=== PATIENT | female | born 1945 | race Caucasian/White ===

== ENCOUNTER 2017-09-20 13:01 | Inpatient (IN) | payer MEDICARE ==
[~2017-09-20] VITALS: Ht 167.6 cm; Wt 75.3 kg
[2017-09-20] MEDS ORDERED: ASPIRIN 81 MG CHEW TAB PO ONE ×2 (13:15→19:00)
--- NOTE | 2017-09-20 14:08 | Diagnostic Imaging Report ---
PROCEDURE:X-RAY CHEST, ONE VIEW COMPARISON:09/02/2010. INDICATIONS:CHEST PAIN FINDINGS: The lungs remain well-inflated. No focal consolidation, pleural effusion, or pneumothorax. Stable calcified granuloma in the right midlung. The mediastinal contour and pulmonary vasculature are within normal limits. No acute osseous abnormality. CONCLUSION: No acute cardiopulmonary abnormality. Dictated by: Kelvin Hines M.D. on 09/20/2017 at 14:16 Electronically approved by: Kelvin Hines M.D. on 09/20/2017 at 14:16
[2017-09-20] MEDS ORDERED: NITROGLYCERIN 2% OINT 1 GM PKT TOP ONE (15:00)
[2017-09-20] MEDS ORDERED: NIFEDIPINE 10 MG CAP PO ONE (15:00)
[2017-09-20 15:01] LABS: BASOPHILS # (AUTO) 0.1 (0.0-0.1); BASOPHILS % 0.5 % (0.0-1.0); EOSINOPHILS # (AUTO) 0.1 (0.0-0.4); EOSINOPHILS % 0.5 % (0.0-6.0); HEMOGLOBIN 12.9 g/dL (12.0-16.0); LYMPHOCYTES # (AUTO) 4.6 (1.0-3.2); LYMPHOCYTES % 30.1 % (18.0-39.1); MEAN CORPUSCULAR HEMOGLOBIN 29.2 pg (28-32); MEAN CORPUSCULAR HGB CONC 33.9 g/dL (31-35); MONOCYTES # (AUTO) 1.4 (0.2-0.8); MONOCYTES % 9.1 % (4.4-11.3); NEUTROPHILS # (AUTO) 8.9 (2.1-6.9); NEUTROPHILS % 58.7 % (38.7-80.0); PLATELET COUNT 320 x10e3/uL (140-360); RED BLOOD COUNT 4.42 x10e6/uL (3.6-5.1); RED CELL DISTRIBUTION WIDTH 13.3 % (11.7-14.4)
[2017-09-20 15:05] LABS: INR 0.86; PROTHROMBIN TIME 12.2 seconds (11.9-14.5)
[2017-09-20 15:06] LABS: PARTIAL THROMBOPLASTIN TIME 24.3 seconds (23.8-35.5)
[2017-09-20 15:14] LABS: ALANINE AMINOTRANSFERASE 18 IU/L (0-55); ALBUMIN 3.4 g/dL (3.5-5.0); ALBUMIN/GLOBULIN RATIO 0.9 (0.8-2.0); ALKALINE PHOSPHATASE 66 IU/L (40-150); BLOOD UREA NITROGEN 11 mg/dL (7-26); BUN/CREATININE RATIO 14 (6-25); CARBON DIOXIDE 25 mmol/L (22-29); CHLORIDE 105 mmol/L (98-107); CREATINE KINASE 75 IU/L (29-168); CREATININE, SERUM 0.77 mg/dL (0.57-1.11); EST GLOMERULAR FILTRATION RATE > 60 ML/MIN (60-); GLUCOSE 104 mg/dL (74-118); LIPASE 25 U/L (8-78); SODIUM 142 mmol/L (136-145)
[2017-09-20 15:33] LABS: THYROID STIMULATING HORMONE 1.703 uIU/mL (0.350-4.940); TROPONIN I 0.012 ng/mL (0-0.300)
[2017-09-20] MEDS ORDERED: NITROGLYCERIN 0.4 MG SUBL SL PRN (19:00)
[2017-09-20] MEDS ORDERED: MORPHINE SULFATE 2 MG/ML SYR IV PRN (19:00)
[2017-09-20] MEDS ORDERED: ENOXAPARIN SODIUM INJ 100 MG/ML SYR SC SCH (19:00)
[2017-09-20] MEDS ORDERED: METOPROLOL TARTRATE 25 MG TAB PO SCH (19:30)
[2017-09-20] MEDS ORDERED: FAMOTIDINE 20 MG TAB PO SCH (19:45)
[2017-09-20] MEDS ORDERED: ENOXAPARIN SOD INJ 60 MG/0.6 ML SYR SC SCH (20:00)
[2017-09-20 20:52] LABS: BILIRUBIN,URINE NEGATIVE (NEGATIVE); CLARITY,URINE SL CLOUDY (CLEAR); COLOR,URINE YELLOW (YELLOW); KETONES,URINE NEGATIVE (NEGATIVE); LEUKOCYTE ESTERASE ,URINE 2+ (NEGATIVE); NITRITE,URINE NEGATIVE (NEGATIVE); PROTEIN,URINE DIPSTICK NEGATIVE (NEGATIVE); URINE UROBILINOGEN 0.2 mg/dL (0.2 - 1)
[2017-09-20 20:54] LABS: BACTERIA,URINE RARE /HPF; EPITHELIAL CELLS,URINE MODERATE /LPF
[2017-09-20 21:32] VITALS: BP 200/93
[2017-09-20] MEDS ORDERED: HYDRALAZINE HCL 20 MG/ML VIAL IV PRN (23:15)
[2017-09-21] VITALS (7 sets, daily range): BP systolic 121–190; BP diastolic 57–86
[2017-09-21] MEDS ORDERED: DIPHENHYDRAMINE HCL INJ 50 MG/ML VIAL IV PRN
[2017-09-21] MEDS ORDERED: NITROGLYCERIN 2% OINT 1 GM PKT TOP SCH
[2017-09-21] MEDS: NITROGLYCERIN 2% OINT 1 GM PKT TOP SCH ×2 (00:19→06:00)
[2017-09-21] MEDS ORDERED: ASPIRIN 325 MG TAB PO PRN (04:45)
[2017-09-21] MEDS ORDERED: PROMETHAZINE HCL 25 MG TAB PO PRN (06:30)
[2017-09-21] MEDS ORDERED: SODIUM CHLORIDE 0.9% 1000ML 500 ML IV ONE (07:45)
[2017-09-21] MEDS ORDERED: ONDANSETRON HCL INJ 2 MG/ML VIAL IV PRN (07:45)
[2017-09-21] MEDS ORDERED: KETOROLAC TROMETHAMINE 30 MG/ML VIAL IV PRN (07:45)
--- NOTE | 2017-09-21 08:57 | History and Physical ---
Patient admitted for chest pain and hypertensive crisis. HISTORY OF PRESENTING ILLNESS: Ms. Shabnam Keene is a 72-year-old female with history of hypertension, was in usual state of health until yesterday the patient went to her pediatric nurse practitioner, was found to have blood pressure of 170/90. She went home and she started eating something and at that time she started to have some external chest pain. She went back to taking Tums and Rolaids and patient felt better, but her blood pressure got a little bit more. She went to urgent care clinic and was sent to the emergency room where her blood pressure was found to be very, very high at 200/100s. The patient was admitted for chest pain and hypertensive urgency. PAST MEDICAL HISTORY: History of hypertension, history of low back pain, history of right ankle pain. Also, patient has history of anxiety. SURGICAL HISTORY: History of oophorectomy. MEDICINES: She takes at home: 1. The patient takes Valium 5 mg. 2. Famotidine 20 mg as needed. 3. Metoprolol. REVIEW OF SYSTEMS: Positive for chest pain. No shortness of breath. Positive for nausea at this time after nitroglycerin patch. Positive for vomiting. No diarrhea. No constipation. No rectal bleeding. No hematochezia. No hematemesis. Negative for blurry vision. THE PATIENT ALSO HAD ALLERGIC REACTION TO HYDRALAZINE YESTERDAY, HAD TINGLING IN THE TONGUE AND NUMBNESS ALSO. No bleeding and no diastasis either. FAMILY HISTORY: Noncontributory. PHYSICAL EXAMINATION: GENERAL: Patient is alert and oriented x3, nervous looking. VITAL SIGNS: At this time 171/79 blood pressure, temperature 98.2, pulse of 76. HEENT: Normocephalic, atraumatic. Pupils are reactive to light and accommodation. CVS: S1 and S2 normal. Regular rate and rhythm. ABDOMEN: Nontender, nondistended. EXTREMITIES: No clubbing, no cyanosis, no edema. LABORATORY VALUES: Initial white count was 15,000; neutrophil count was 8.9; lymphocyte was 4.6. Chemistry: Sodium 140, potassium was 3.0. Albumin and globulin 3.4 and 4. Otherwise, BUN and creatinine were normal. Urine showed 2+ leuk esterase and urine blood was 2+, and influenza was negative. ASSESSMENT: 1. Chest pain. Troponin x1 has been negative. Cardiac enzymes negative. 2. Leukocytosis, probably secondary to urinary tract infection. 3. History of hypertension. The patient will be continued on metoprolol. Will take off her nitroglycerin patch for right now; and for chest pain, will go and consult Dr. Sylvester, possible cardiac stress test as an outpatient; and if the patient's blood pressure is better and if she is feeling better, we can discharge her today and do outpatient-based stress. I will culture the urine and also follow up with her leukocytosis. Job#: [id number]
[2017-09-21] MEDS ORDERED: DIAZEPAM 5 MG TAB PO ONE (09:00)
[2017-09-21] MEDS ORDERED: ASPIRIN 81 MG ENTERIC COATED PO SCH (09:00)
[2017-09-21 09:26] LABS: CREATINE KINASE MB 1.3 ng/mL (0.00-5.00); TROPONIN I 0.01 ng/mL (0-0.300)
[2017-09-21] MEDS ORDERED: ENOXAPARIN SOD INJ 60 MG/0.6 ML SYR SC SCH ×2 (10:53→21:00)
[2017-09-21] MEDS: METOPROLOL TARTRATE 25 MG TAB PO SCH ×2 (10:59→21:10)
[2017-09-21] MEDS: FAMOTIDINE 20 MG TAB PO SCH ×2 (10:59→16:43)
[2017-09-21] MEDS ORDERED: ACETAMINOPHEN 325 MG TAB PO PRN (12:15)
[2017-09-21] MEDS ORDERED: ZOLPIDEM TARTRATE 5 MG TAB PO PRN (12:15)
[2017-09-21] MEDS ORDERED: CLONIDINE HCL 0.1 MG TAB PO PRN (12:30)
[2017-09-21 12:41] LABS: THYROID STIMULATING HORMONE 1.488 uIU/mL (0.350-4.940)
[2017-09-21] MEDS ORDERED: SODIUM CHLORIDE 0.9% 1000ML 1,000 ML IV SCH (13:00)
[2017-09-21] MEDS: DIAZEPAM 5 MG TAB PO SCH ×2 (13:05→16:43)
[2017-09-21 13:29] LABS: CREATINE KINASE MB 1.4 ng/mL (0.00-5.00); TROPONIN I 0.012 ng/mL (0-0.300)
[2017-09-21] MEDS ORDERED: IOPAMIDOL 370 MG/ML 200 ML INFUS..BTL INJ ONE (13:53)
[2017-09-21] MEDS ORDERED: SODIUM CHLORIDE 0.9% 50ML 50 ML ONE (13:53)
--- NOTE | 2017-09-21 14:30 | Consultation ---
DATE OF CONSULTATION: September 21, 2017 CARDIAC CONSULTATION REASON FOR THE CONSULTATION: Severe chest pain, uncontrolled hypertension. HISTORY: This is a 72-year-old lady who is known with an anxiety and hypercholesterolemia. She was in her usual status of health "I'm healthy." In August 2017, she had "walking pneumonia" and she needed to see her doctor 3 times. Yesterday, she was seen by Dr. Rosario for her Pap smear. It was noted the patient's blood pressure is elevated and she is having severe retrosternal chest pain radiating to her back associated with diaphoresis. "My anxiety becomes worse." This pain she described as severe retrosternal, radiating to the back to the neck, associated with diaphoresis. Her blood pressure became more elevated. She went to the emergency room and admitted for further management. She was given nitroglycerin and she started having nausea and vomiting. Subsequently, she had severe headache. She was seen by Dr. Munoz. Plan was for rule out for NC initially; however, today, she was very sick, she is vomiting, she is having severe retrosternal chest pain. Cardiac consultation is obtained. I visited the patient whom she said for the last couple of months or so she does have easy fatigability, chest pressure, chest tightness, but yesterday she had prolonged several episodes of severe retrosternal chest pain, pressure in nature, radiating to the back to the neck, lasting for 20 minutes. Today, she is more with nausea and vomiting. She is feeling a little bit better now. Her nitro paste was removed. Interestingly, she had for sometime right ankle swelling. She was seen by column precaster. A venous Doppler was negative. A new venous Doppler done here was also negative. Patient denied having any recent trouble. She takes hormone, Premarin, and medroxyprogesterone. She denied having any pleuritic chest pain. She does have shortness of breath. Her D-dimer in the emergency room was elevated, but no CT scan with PE protocol done. REVIEW OF SYSTEMS: Was very extensive to all systems and will be summarized for clarity. CARDIAC: As per acute illness. PULMONARY: As per acute illness. No cough. No hemoptysis. GI: Repeated heartburn, indigestion, but her pain is totally different from usual heartburn. : No hematuria. No dysuria. NEUROMUSCULAR: Only swelling of the right ankle. HEMATOLOGICAL: No easy bruising and bleeding. GENERAL: Weakness. SOCIAL HISTORY: She is . She stopped smoking 8 years ago. She is rarely having a drink of alcohol. She used to work for [employer]. She has retired. PAST MEDICAL HISTORY: Left oophorectomy many years ago, hypercholesterolemia and anxiety, on hormone supplement. FAMILY HISTORY: Father with severe hypercalcemia, questionable etiology, he was only 71. Mother of old age. No siblings. No brothers. No sister. No children. HOME MEDICATIONS: Her home medications are: 1. Lipitor 10 mg a day. 2. Premarin 0.625 mg a day. 3. Medroxyprogesterone 2.5 mg a day. 4. Valium 5 mg a day. 5. Prilosec 20 mg a day. ALLERGIES: PENICILLIN, HYDRALAZINE, SULFA, AND BENADRYL. PHYSICAL EXAMINATION VITALS: Height of 5 feet 6 inches, weight of 140 pounds, blood pressure 190/90, heart rate of 70, and respiratory rate of 18. Afebrile. HEENT: Pupils are equal and reactive. NECK: No elevation of jugular venous pulsation. No bruit. CHEST: Clear to auscultation and percussion. HEART: PMI in the 5th left intercostal space. Normal first and second heart sound. ABDOMEN: Soft with good bowel sounds. No organomegaly. No abdominal bruits. EXTREMITIES: No cyanosis. No clubbing. No edema. No swelling. No signs of deep venous thrombosis. NEUROLOGIC: Awake, alert, oriented, and nonfocal. LABORATORY DATA: D-dimer is elevated. EKG is showing normal sinus rhythm, diffuse ST-T segment changes. BNP of only 87. TSH of 1.7. Chest x-ray by report was normal. IMPRESSION AND PLAN 1. Severe uncontrolled hypertension. 2. Severe anxiety. 3. Chest pain, very typical for unstable coronary syndrome. 4. History of gastroesophageal reflux disease. 5. Anxiety. 6. Hypercholesterolemia. 7. Elevated D-dimer. Cardiac-chow, my recommendation are as follows. We need to get urgent CT scan of the chest PE protocol. Will continue on IV Lovenox till we get the results of that scan. Ultrasound of gallbladder to be done for completeness of workup. IV fluid will be continued. Because of very aggressive nature of her symptoms, her level of anxiety, and the probability of coronary artery disease, etc., etc., will proceed directly with cardiac catheterization with possible intervention. This will be scheduled for tomorrow providing the CT scan of the chest is negative. Differential diagnoses are discussed and explained with the patient and her , very lengthy visit, very lengthy discussion. Job#: [id number] SAK MTDJose Rafael
[2017-09-21] MEDS: D5.45%NS/KCL 20MEQ 1,000 ML IV SCH (14:38)
--- NOTE | 2017-09-21 14:57 | Diagnostic Imaging Report ---
PROCEDURE: CT scan of the chest WITH intravenous contrast, using PE protocol. TECHNIQUE: The chest was scanned utilizing a multidetector helical scanner from the lung apex through the level of the adrenal glands after the IV administration of 62 cc of Isovue 370 with special concentration in the pulmonary arteries. Coronal and sagittal multiplanar reformations were obtained. COMPARISON: None. INDICATIONS: Chest pain, high blood pressure FINDINGS: Lines/tubes: None. Lungs and Airways: Filling defects in segmental and subsegmental branches of the posterior basal segments of bilateral lower lobes, consistent with pulmonary emboli (series 2, images 68, 77 and 83 on the right and 71, 73, 75 on the left). No other filling defects are identified in the pulmonary arteries. Linear opacities in the lateral right lower lobe, likely reflect subsegmental atelectasis or scarring. Mild biapical pleuroparenchymal scarring. 5 mm calcified granuloma in the right lower lobe (series 3, image 57). No masses or consolidation. Airways are clear, without endobronchial lesions. Pleura: No effusion, or pneumothorax. Heart and mediastinum: Thyroid is unremarkable. Heart size is normal. No pericardial effusion. Aorta is non-aneurysmal. Main pulmonary artery is normal in caliber. Lymph nodes: No mediastinal, hilar, or axillary adenopathy. Abdomen: Limited contrast-enhanced views of the upper abdomen show no abnormality within the visualized liver, spleen, pancreas, or a left kidney. 1.3 cm fluid density simple cyst in the right kidney. The adrenal glands are normal. Bones: No acute bony abnormalities. Soft tissues are unremarkable. IMPRESSION: 1. pulmonary emboli involving segmental and subsegmental branches of the posterior basal segments of bilateral lower lobes. No other pulmonary emboli are noted. 2. Findings discussed with Liberty, the patient's nurse at 1445 hr. Kishan Carvalho M.D. Dictated by: Kishan Carvalho M.D. on 09/21/2017 at 15:05 Electronically approved by: Kishan Carvalho M.D. on 09/21/2017 at 15:05
[2017-09-21] MEDS ORDERED: FAMOTIDINE 20 MG TAB PO SCH (16:30)
[2017-09-21 17:03] LABS: CREATINE KINASE MB 1.7 ng/mL (0.00-5.00); TROPONIN I 0.021 ng/mL (0-0.300)
[2017-09-21] MEDS ORDERED: METOPROLOL TARTRATE 25 MG TAB PO SCH (21:00)
[2017-09-21] MEDS: ATORVASTATIN 10 MG TAB PO SCH (21:10)
[2017-09-21] MEDS: ENOXAPARIN SOD INJ 60 MG/0.6 ML SYR SC SCH (21:10)
[2017-09-22] VITALS (7 sets, daily range): BP systolic 109–165; BP diastolic 59–88
[2017-09-22 06:04] LABS: BASOPHILS % 0.4 % (0.0-1.0); EOSINOPHILS # (AUTO) 0.1 (0.0-0.4); EOSINOPHILS % 0.9 % (0.0-6.0); HEMATOCRIT 32.6 % (34.2-44.1); HEMOGLOBIN 10.8 g/dL (12.0-16.0); LYMPHOCYTES % 39.1 % (18.0-39.1); MEAN CORPUSCULAR HEMOGLOBIN 28.8 pg (28-32); MEAN CORPUSCULAR HGB CONC 33.1 g/dL (31-35); MEAN CORPUSCULAR VOLUME 86.9 fL (81-99); MONOCYTES % 9.9 % (4.4-11.3); NEUTROPHILS % 48.9 % (38.7-80.0); PLATELET COUNT 298 x10e3/uL (140-360); RED BLOOD COUNT 3.75 x10e6/uL (3.6-5.1); RED CELL DISTRIBUTION WIDTH 13.7 % (11.7-14.4)
[2017-09-22 06:24] LABS: ALANINE AMINOTRANSFERASE 13 IU/L (0-55); ALBUMIN 2.6 g/dL (3.5-5.0); ALBUMIN/GLOBULIN RATIO 0.8 (0.8-2.0); ALKALINE PHOSPHATASE 49 IU/L (40-150); ANION GAP 12.3 mmol/L (8-16); BLOOD UREA NITROGEN 8 mg/dL (7-26); BUN/CREATININE RATIO 11 (6-25); CALCIUM 8.1 mg/dL (8.4-10.2); CARBON DIOXIDE 24 mmol/L (22-29); CHLORIDE 109 mmol/L (98-107); EST GLOMERULAR FILTRATION RATE > 60 ML/MIN (60-); GLUCOSE 96 mg/dL (74-118); POTASSIUM 3.3 mmol/L (3.5-5.1); SODIUM 142 mmol/L (136-145)
[2017-09-22] MEDS: FAMOTIDINE 20 MG TAB PO SCH ×2 (07:59→16:42)
[2017-09-22] MEDS: D5.45%NS/KCL 20MEQ 1,000 ML IV SCH (08:15)
[2017-09-22] MEDS: ENOXAPARIN SOD INJ 60 MG/0.6 ML SYR SC SCH ×2 (08:21→08:31)
[2017-09-22] MEDS: METOPROLOL TARTRATE 25 MG TAB PO SCH ×2 (08:21→20:54)
[2017-09-22] MEDS: DIAZEPAM 5 MG TAB PO SCH ×2 (08:21→16:54)
[2017-09-22] MEDS ORDERED: POTASSIUM CHLORIDE 20 MEQ TAB CR PO STA (09:53)
[2017-09-22] MEDS: RIVAROXABAN 15 MG TABLET PO SCH (16:42)
--- NOTE | 2017-09-22 20:03 | Consultation ---
DATE OF CONSULTATION: September 22, 2017 PULMONARY CONSULTATION REASON FOR CONSULTATION: Pulmonary embolism. HPI: Ms. Keene is a 72-year-old female who presented to the emergency room with complaints of shortness of breath and chest pain. The patient was admitted on the 21 of September. She initially went to her institution librarian who found that her blood pressure was high and subsequently had chest discomfort. In the emergency room patient underwent a CTA of the chest which showed pulmonary emboli involving segmental and subsegmental branches of the posterior basal segment of bilateral lower lobes. Patient was started on Lovenox and pulmonary consultation was called. REVIEW OF SYSTEMS: GENERAL: Denies any fever or chills. HEAD: Denies any trauma head or head injury. ENT: Denies any earache, nosebleed throat pain. CVS: Denies any chest pain. RESPIRATORY: Denies any shortness of breath. The rest of the review systems are negative except as in history of present illness. PAST MEDICAL HISTORY: Hypertension, hyperlipidemia, low back pain, ankle pain. PAST SURGICAL HISTORY: History of oophorectomy. FAMILY AND SOCIAL HISTORY: She is an ex-smoker. She does not smoke any more. She smoked for 30+ years. PHYSICAL EXAMINATION: VITALS: Temperature 97.4, pulse 66, blood pressure 156/72, respiratory rate of 18, O2 sat 98% on room air. SKIN: Warm and dry. GENERAL APPEARANCE: She is an elderly female not in any obvious distress. She is awake, alert, following commands and responding to questions appropriately. HEENT: Head atraumatic, normocephalic. Pupils reactive. NECK: Supple with no JVD. Thyroid not enlarged. CHEST: Is clear to auscultation bilaterally. ABDOMEN: Soft, nontender and nondistended. EXTREMITIES: No clubbing, cyanosis or edema. LABORATORY DATA: White count of 10,000, hemoglobin 10.8, platelets 298,000. Chemistry is within normal limits. INR is 0.86 and the hypercoagulable workup is pending. CT of the chest is showing segmental pulmonary embolism. ASSESSMENT: Ms. Keene is a 72-year-old female with acute pulmonary embolism. It is unprovoked, likely due to the hormone replacement therapy she is getting for menopause. No recent travel and trauma to the legs. No history of malignancy. PLAN: I will start the patient on Xarelto and follow the patient as an outpatient. Continue the patient on Lovenox until Xarelto is started and then Lovenox can be discontinued. Patient is very concerned about the side effect of different medication. I will keep her another day to make sure that she does not have any side effects on Xarelto, and she can be discharged in the a.m. This was discussed in detail with patient's at bedside. Job#: [id number]
[2017-09-22] MEDS: ATORVASTATIN 10 MG TAB PO SCH (20:53)
[2017-09-23] VITALS: BP 156/78
[2017-09-23 04:00] VITALS: BP 174/85
[2017-09-23] MEDS: D5.45%NS/KCL 20MEQ 1,000 ML IV SCH (05:18)
[2017-09-23] MEDS: FAMOTIDINE 20 MG TAB PO SCH (07:30)
[2017-09-23 08:25] VITALS: BP 190/98
[2017-09-23 08:27] VITALS: BP 190/98
[2017-09-23] MEDS: RIVAROXABAN 15 MG TABLET PO SCH (08:36)
[2017-09-23] MEDS: METOPROLOL TARTRATE 25 MG TAB PO SCH (08:36)
[2017-09-23] MEDS: DIAZEPAM 5 MG TAB PO SCH (08:36)
[2017-09-23 09:25] VITALS: BP 150/84
== END 2017-09-23 09:41 | disposition home or self-care (01) | DRG 176 ==
LOC: ER 13:01 → IMCU 21:40 → OBSVTOIN 09-22 16:01
PROVIDERS: ADMIT Family Medicine; ATTEND Family Medicine
DX: I26.99 Other pulmonary embolism without acute cor pulmonale (principal); N39.0 Urinary tract infection, site not specified; E78.5 Hyperlipidemia, unspecified; F41.9 Anxiety disorder, unspecified; Z78.0 Asymptomatic menopausal state; I10 Essential (primary) hypertension; K21.9 Gastro-esophageal reflux disease without esophagitis
CPT/HCPCS: 36415; 71010; 71260; 80053; 80061; 81001; 81241; 81400; 82270; 82550; 82553; 82948; 83690; 83880; 84443; 84484; 85025; 85303; 85306; 85379; 85610; 85730; 87086; 87400; 93005; 93306; 93971; 99284; G0378; J0360; J1200; J1650; J1885; J2405; J7030; Q9967

== ENCOUNTER 2017-09-29 10:40 | Emergency (ER) | payer MEDICARE ==
[~2017-09-29] VITALS: Ht 167.6 cm; Wt 75.3 kg
[2017-09-29] MEDS ORDERED: XARELTO10 MG PO (10:53)
[2017-09-29] MEDS ORDERED: METOPROLOL TART25 MG PO (10:53)
[2017-09-29] MEDS ORDERED: PRILOSEC OTC20 MG PO (10:55)
[2017-09-29] MEDS ORDERED: CARAFATE1 GM/10 ML PO (10:55)
[2017-09-29] MEDS ORDERED: LIPITOR20 MG PO (10:55)
[2017-09-29] MEDS ORDERED: VALIUM5 MG PO (10:55)
[2017-09-29 13:18] LABS: BASOPHILS # (AUTO) 0.1 (0.0-0.1); BASOPHILS % 0.4 % (0.0-1.0); EOSINOPHILS # (AUTO) 0.1 (0.0-0.4); EOSINOPHILS % 0.6 % (0.0-6.0); HEMATOCRIT 39.9 % (34.2-44.1); LYMPHOCYTES # (AUTO) 4.9 (1.0-3.2); LYMPHOCYTES % 35.5 % (18.0-39.1); MEAN CORPUSCULAR HEMOGLOBIN 28.9 pg (28-32); MEAN CORPUSCULAR HGB CONC 32.6 g/dL (31-35); MEAN CORPUSCULAR VOLUME 88.7 fL (81-99); MONOCYTES # (AUTO) 1.4 (0.2-0.8); MONOCYTES % 9.9 % (4.4-11.3); NEUTROPHILS # (AUTO) 7.2 (2.1-6.9); NEUTROPHILS % 52.7 % (38.7-80.0); PLATELET COUNT 370 x10e3/uL (140-360); RED CELL DISTRIBUTION WIDTH 13.1 % (11.7-14.4)
[2017-09-29 13:28] LABS: ANION GAP 14.4 mmol/L (8-16); BLOOD UREA NITROGEN 13 mg/dL (7-26); BUN/CREATININE RATIO 18 (6-25); CALCIUM 8.7 mg/dL (8.4-10.2); CARBON DIOXIDE 24 mmol/L (22-29); CHLORIDE 108 mmol/L (98-107); CREATININE, SERUM 0.74 mg/dL (0.57-1.11); EST GLOMERULAR FILTRATION RATE > 60 ML/MIN (60-); GLUCOSE 98 mg/dL (74-118); POTASSIUM 3.4 mmol/L (3.5-5.1); SODIUM 143 mmol/L (136-145)
[2017-09-29 15:32] LABS: LYMPHOCYTES % (MANUAL) 40 % (19-48); MONOCYTES % (MANUAL) 2 % (3.4-9.0); NEUTROPHILS % (MANUAL) 57 % (40-74)
[2017-09-29 15:33] LABS: PLATELET ESTIMATE ADEQUATE; PLATELET MORPHOLOGY COMMENT NORMAL; RBC MORPHOLOGY COMMENT NORMAL
== END 2017-09-29 16:58 | disposition home or self-care (01) ==
LOC: ER 10:40
DX: I10 Essential (primary) hypertension (principal); N95.0 Postmenopausal bleeding
CPT/HCPCS: 36415; 80048; 85007; 85025; 99284

== ENCOUNTER 2018-03-15 10:47 | Inpatient (IN) | payer MEDICARE ==
[~2018-03-15] VITALS: Ht 167.6 cm; Wt 75.3 kg
[~2018-03-15 10:47] MED LIST: CARAFATE1 GM/10 ML PO; LIPITOR20 MG PO; METOPROLOL TART25 MG PO; PRILOSEC OTC20 MG PO; VALIUM5 MG PO; XARELTO10 MG PO
[2018-03-15] MEDS ORDERED: SODIUM CHLORIDE 0.9% 1000ML 1,000 ML IV STA (10:50)
[2018-03-15] MEDS ORDERED: ALBUTEROL SULF 0.083% NEB SOLN 3 ML NEB NEB STA (10:50)
[2018-03-15] MEDS ORDERED: IPRATROPIUM BROMIDE 0.02% 2.5 ML NEB NEB STA (10:50)
[2018-03-15] MEDS ORDERED: ASPIRIN 81 MG CHEW TAB PO ONE (11:00)
[2018-03-15 11:44] LABS: BILIRUBIN,URINE NEGATIVE (NEGATIVE); CLARITY,URINE SL CLOUDY (CLEAR); COLOR,URINE YELLOW (YELLOW); KETONES,URINE NEGATIVE (NEGATIVE); LEUKOCYTE ESTERASE ,URINE 2+ (NEGATIVE); NITRITE,URINE NEGATIVE (NEGATIVE); PROTEIN,URINE DIPSTICK NEGATIVE (NEGATIVE); URINE UROBILINOGEN 0.2 mg/dL (0.2 - 1)
[2018-03-15 11:58] LABS: BACTERIA,URINE MODERATE /HPF; EPITHELIAL CELLS,URINE MODERATE /LPF; WBC,URINE (MAN) >50 /HPF (0-5)
[2018-03-15 12:02] LABS: BASOPHILS # (AUTO) 0.1 (0.0-0.1); BASOPHILS % 0.4 % (0.0-1.0); EOSINOPHILS # (AUTO) 0.1 (0.0-0.4); EOSINOPHILS % 0.5 % (0.0-6.0); HEMATOCRIT 38.5 % (34.2-44.1); HEMOGLOBIN 12.6 g/dL (12.0-16.0); LYMPHOCYTES # (AUTO) 4.1 (1.0-3.2); LYMPHOCYTES % 35.3 % (18.0-39.1); MEAN CORPUSCULAR HEMOGLOBIN 28.5 pg (28-32); MEAN CORPUSCULAR HGB CONC 32.7 g/dL (31-35); MEAN CORPUSCULAR VOLUME 87.1 fL (81-99); MONOCYTES # (AUTO) 1.2 (0.2-0.8); MONOCYTES % 10.7 % (4.4-11.3); NEUTROPHILS # (AUTO) 6.1 (2.1-6.9); NEUTROPHILS % 52.7 % (38.7-80.0); PLATELET COUNT 346 x10e3/uL (140-360); RED BLOOD COUNT 4.42 x10e6/uL (3.6-5.1); RED CELL DISTRIBUTION WIDTH 12.2 % (11.7-14.4)
[2018-03-15] MEDS: CEFTRIAXONE SOD 1 GM VIAL IV ONE ×2 (12:04→12:22)
[2018-03-15 12:10] LABS: INR 1.01; PROTHROMBIN TIME 12.5 seconds (11.9-14.5)
[2018-03-15 12:11] LABS: PARTIAL THROMBOPLASTIN TIME 26.3 seconds (23.8-35.5)
[2018-03-15 12:18] LABS: ALANINE AMINOTRANSFERASE 28 IU/L (0-55); ALBUMIN 3.8 g/dL (3.5-5.0); ALBUMIN/GLOBULIN RATIO 1.1 (0.8-2.0); ALKALINE PHOSPHATASE 76 IU/L (40-150); ANION GAP 13.7 mmol/L (8-16); BLOOD UREA NITROGEN 9 mg/dL (7-26); BUN/CREATININE RATIO 12 (6-25); CALCIUM 10.3 mg/dL (8.4-10.2); CARBON DIOXIDE 26 mmol/L (22-29); CHLORIDE 103 mmol/L (98-107); CREATINE KINASE 36 IU/L (29-168); CREATININE, SERUM 0.77 mg/dL (0.57-1.11); EST GLOMERULAR FILTRATION RATE > 60 ML/MIN (60-); GLUCOSE 100 mg/dL (74-118); MAGNESIUM 1.5 MG/DL (1.3-2.1); POTASSIUM 3.7 mmol/L (3.5-5.1); SODIUM 139 mmol/L (136-145)
[2018-03-15] MEDS ORDERED: SODIUM CHLORIDE 0.9% 50ML 50 ML ONE (12:21)
[2018-03-15] MEDS ORDERED: IOPAMIDOL 370 MG/ML 200 ML INFUS..BTL INJ ONE (12:22)
[2018-03-15 12:29] LABS: ABG HCO3 24 mmol/L (23-28); ABG PCO2 30 mmHg (41-51); ABG PH 7.51 (7.31-7.41); ABG PO2 78 mmHg (80-105)
--- NOTE | 2018-03-15 14:02 | Diagnostic Imaging Report ---
EXAM: CT Chest WITH contrast 03/15/2018 10:50 AM INDICATION: Difficulty breathing. Pulmonary embolism. COMPARISON: September 21, 2017. TECHNIQUE: Chest was scanned utilizing a multidetector helical scanner from the lung apex through the level of the adrenal glands without administration of IV contrast. Coronal and sagittal reformations were obtained. Pulmonary embolism protocol was performed. IV CONTRAST: 100 mL of Isovue-370 RADIATION DOSE: Total DLP: 471.84 mGy*cm Estimated effective dose: (DLP x 0.014 x size factor) mSv COMPLICATIONS: None FINDINGS: LINES/ TUBES: None. LUNGS AND AIRWAYS: Tiny filling defects present in the posterior left lower lobe segmental pulmonary arteries as seen on axial images 63 and 64 series 2 which appears new since the prior examination. Remainder filling defects previously present are less conspicuous or resolved. Calcified granuloma in the super segment of the right lower lobe. Right lower lobe, lingular and left basilar linear subsegmental atelectasis. PLEURA: Biapical pleural-parenchymal scarring. HEART AND MEDIASTINUM: The thyroid gland is normal. No mediastinal, hilar or axillary lymphadenopathy. The heart is normal in size.. There is no pericardial effusion. Mild thickening of the distal esophagus. UPPER ABDOMEN: Limited non-contrast views of the upper abdomen show a 1.7 cm low-attenuation lesion in the anterior interpolar region of the right kidney, most suggestive of a cyst.. The adrenal glands are normal. BONES: No acute osseous abnormality. Degenerative changes of the lower thoracic spine. SOFT TISSUES: Unremarkable. IMPRESSION: 1. Small filling defects in the posterior left lower lobe segmental pulmonary arteries appear new since the prior examination. However, previously present small bilateral lower lobe pulmonary emboli are either decreased or resolved. Signed by: Dr. Elzbieta Peralta M.D. on 03/15/2018 1:59 PM
[2018-03-15] MEDS: SODIUM CHLORIDE 0.9% 1000ML 1,000 ML IV SCH (14:27)
[2018-03-15] MEDS: APIXABAN 5 MG TABLET PO SCH (16:36)
[2018-03-15 16:52] VITALS: BP 144/77
[2018-03-15 17:10] VITALS: BP 144/77
[2018-03-15 17:25] VITALS: BP 144/77
[2018-03-15 20:00] VITALS: BP 142/76
[2018-03-15] MEDS: LEVOFLOXACIN 500MG/D5W 100ML 100 ML IV SCH (20:00)
[2018-03-15 20:27] VITALS: BP 142/76
[2018-03-16] VITALS (8 sets, daily range): BP systolic 134–174; BP diastolic 66–84
[2018-03-16] MEDS: SODIUM CHLORIDE 0.9% 1000ML 1,000 ML IV SCH ×2 (03:47→18:41)
[2018-03-16] MEDS: APIXABAN 5 MG TABLET PO SCH ×3 (08:34→18:41)
[2018-03-16] MEDS ORDERED: CEFTRIAXONE SOD 1 GM VIAL IV ONE (09:00)
[2018-03-16] MEDS: PANTOPRAZOLE SOD 40 MG TABEC PO SCH (09:25)
[2018-03-16] MEDS: DIAZEPAM 5 MG TAB PO SCH (09:52)
--- NOTE | 2018-03-16 14:28 | History and Physical ---
This patient is admitted to the hospital for shortness of breath. HISTORY OF PRESENT ILLNESS: This is Ms. Shabnam Keene with a history of chronic bronchitis, history of pulmonary embolism in the past was in her usual state of health until 1 week prior to admission. The patient started to have some shortness of breath and increased on exertion. The patient was seen in the office 1-2 times for allergic bronchitis. Was given breathing treatments. Sats are doing okay, but the patient's shortness of breath got out of control. The patient came to the emergency room. CT was done, and the patient was found to have 2 filling defects in the lower part of the lungs, which represented small pulmonary emboli. The patient was asked to take Eliquis, but she refused at this time. PAST MEDICAL HISTORY: History of reflux esophagitis, history of hyperlipidemia, history of anxiety, and acid reflux as mentioned above. ALLERGIES: SHE IS ALLERGIC TO BENADRYL, CODEINE, , ANTIHISTAMINES, PENICILLIN, LEVAQUIN, KEFLEX, PREDNISONE PACKS, AND SULFA DRUGS. SURGICAL HISTORY: Removal of left ovary. Recently hospitalized about 6 months ago for pulmonary embolism and was on Eliquis and recently stopped. FAMILY HISTORY: Father with history unknown. Mother diagnosed with diabetes. She is too. SOCIAL HISTORY: No history of ETOH. No IV drug abuse. Lives with . Used to be working with a physician. REVIEW OF SYSTEMS: Negative for chest pain. Positive for shortness of breath. No nausea, vomiting, diarrhea. No constipation. No rectal bleeding. No hematochezia. No hematemesis. Positive for ecchymosis on the skin. No diplopia. No blurry vision. PHYSICAL EXAMINATION GENERAL: The patient is alert and oriented times 3. The patient is very anxious appearing. VITALS: Temperature is 98.7, blood pressure 120-130/80-85, satting 99% O2 on 1 L nasal cannula. HEENT: Normocephalic and atraumatic. Pupils reactive to light and accommodation. CV: S1 and S2 normal. Regular rate and rhythm. ABDOMEN: Nontender and nondistended. EXTREMITIES: No clubbing. No cyanosis. No edema. LABORATORY VALUES: Slightly elevated white count probably secondary to steroid intake. Otherwise, no left shift present. CBC is essentially normal. The patient's CT scan as mentioned above did show some filling defects in the lower bases. Also, urine showed a urinary tract infection. PLAN: Keep her in. Consult with Dr. Joseph has been done. She is on O2. She feels comfortable with O2 and will continue with the same. As far as anticoagulation, will confer with Dr. Joseph too. At this point in time, the patient needs Eliquis, but she refuses. She does not want any anticoagulation. I explained the risks and benefits. She is willing to go on aspirin 325 mg once a day. Again, will confer with Dr. Joseph. Continue current plan of oxygen. As far as the urinary tract infection, we are sending it off for microbiology pending urine culture and sensitivity. Further recommendations per clinical course. FINAL DIAGNOSES 1. Pulmonary embolism. 2. Shortness of breath. 3. Urinary tract infection. 4. Anxiety. Will continue the current care. Further recommendations per clinical course. Job#: [id number] MARKIE
--- NOTE | 2018-03-16 15:38 | Consultation ---
DATE OF CONSULTATION: March 16, 2018 PULMONARY MEDICINE CONSULTATION REASON FOR REFERRAL: Pulmonary embolism. HISTORY: Ms. Keene is a pleasant 72-year-old female with pulmonary embolism. Patient with history of previous pulmonary embolism. She had previous risk factor of taking estrogen replacement therapy. Patient since was stopped on estrogen replacement therapy. She was being managed by Dr. Noel of Hematology. After discussing risks and benefits he gave a trial of stopping anticoagulation after 6 months. Patient at this point had increasing chest pain over the next four days. Patient saw her PCP this week but as symptoms progressed, she came back to the hospital for emergency assessment. CT chest was performed and did show new filling defect x2 in left lower lobe. Majority of previous filling defect had resolved. Patient was admitted and recommended for anticoagulation, however the patient is not readily accepting the first line recommendation and she wants more information. She requests me due to network benefit issues. MEDICATIONS AT HOME: See medication list for details. ALLERGIES: PENICILLIN, DIPHENHYDRAMINE, HYDRALAZINE, FUROSEMIDE, SULFA, AND POSSIBLY SOME STEROIDS. SOCIAL HISTORY: Patient smoked from age 23 to 62, one pack per day. No alcohol, no drugs. 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 FAMILY HISTORY: Noncontributory. PAST MEDICAL HISTORY: GERD, anxiety, pulmonary embolism, allergies for 5 years, bronchitis in her youth. REVIEW OF SYSTEMS GENERAL: No weight changes. OPHTHALMOLOGIC: No double vision. ENT: No ear pain. ENDOCRINE: No thyroid disease. PULMONARY: No hemoptysis. CARDIAC: No heart attack. GI: No diarrhea now, occasional constipation. : No blood in urine. NEUROLOGIC: No seizures. DERMATOLOGIC: No rash. LABS: Potassium 92.7, creatinine 0.8. White count 11, hematocrit 39, platelets 346. IMPRESSION AND PLAN 1. Recurrent pulmonary embolism, recurrence off anticoagulation. 2. Former smoker. 3. Anxiety. 4. Gastroesophageal reflux disease. 5. Allergies. 6. Bronchitis. 7. History of multiple anticoagulation intolerance due to symptoms that are not related to bleeding. I went over imaging with the . I went over the risks, benefits, alternatives with the and . They were recommended for anticoagulation probably life long. They should remain off estrogen agents as well as remain off cigarettes as she has. In the event they do not want anticoagulation, the lower recommendation would be for duplex ultrasound of her legs and see if there is a filter that could be placed to block the mobilization of clots. I do not recommend aspirin except with a very low level of recommendation as it is below standard of care for treating pulmonary emboli. Will follow along closely. I discussed with the primary care doctor given the difficult situation. Alternatively we may be able to try to offer a different anticoagulation medicine to see if she does not have the side effects from it. Thank you very much Dr. Munoz for allowing me a chance to participate in the care of Ms. Keene. Do not hesitate to contact me if I can help in any way. Job#: [id number] NEFTALI
[2018-03-16] MEDS: SUCRALFATE 1 GM/10 ML SUSP PO PRN (16:11)
[2018-03-16] MEDS ORDERED: ATORVASTATIN 20 MG TAB PO SCH (20:00)
[2018-03-16] MEDS: LEVOFLOXACIN 500MG/D5W 100ML 100 ML IV SCH (20:00)
[2018-03-16] MEDS ORDERED: ATORVASTATIN 10 MG TAB PO SCH (21:00)
[2018-03-17] VITALS (7 sets, daily range): BP systolic 114–150; BP diastolic 67–86
[2018-03-17] MEDS: SODIUM CHLORIDE 0.9% 1000ML 1,000 ML IV SCH (06:27)
[2018-03-17] MEDS: SUCRALFATE 1 GM/10 ML SUSP PO PRN ×3 (06:50→16:02)
[2018-03-17] MEDS: DIAZEPAM 5 MG TAB PO SCH (08:49)
[2018-03-17] MEDS: PANTOPRAZOLE SOD 40 MG TABEC PO SCH (08:50)
[2018-03-17] MEDS: APIXABAN 5 MG TABLET PO SCH ×2 (09:35→18:03)
[2018-03-17] MEDS ORDERED: FLOVENT HFA12 G1 IH (13:56)
--- NOTE | 2018-03-17 14:50 | Progress Note ---
DATE: March 17, 2018 PULMONARY MEDICINE PROGRESS NOTE SUBJECTIVE: Ms. Keene was seen and examined at bedside. She has mild shortness of breath intermittently. However, at rest, she is usually okay. She is able to eat somewhat. She does have a lot of questions regarding her condition so far but she continues to have no bleeding. REVIEW OF SYSTEMS: No headaches. No rash. OBJECTIVE VITALS: Afebrile. Vital signs noted per electronic record. GENERAL: No acute distress, alert and calm. HEENT: Normocephalic, atraumatic. NECK: Supple. Throat midline. LUNGS: Bilateral air entry, mostly clear. CARDIOVASCULAR: S1 and S2. No murmurs, rubs or gallops. ABDOMINAL: Soft, nontender. EXTREMITIES: No clubbing, no cyanosis. There is no edema. INTEGUMENT: No rash. No purpura. IMPRESSION AND PLAN 1. Acute pulmonary embolism. 2. Shortness of breath. 3. Perennial allergies, possible asthma. 4. Gastroesophageal reflux disease. 5. Anxiety possible. Continue IV fluids. Continue exogenous oxygen supplement. Continue blood thinner at this time. Hematology consult and we await better treatment guidance. The patient will continue diazepam at this time. Job#: [id number]
--- NOTE | 2018-03-17 19:50 | Consultation ---
DATE OF CONSULTATION: March 17, 2018 CONSULT TO: Dr. Alexander Mckeon. HISTORY OF PRESENT ILLNESS: Shabnam Keene is a 72-year-old female, referred to me for evaluation of recurrent pulmonary emboli. The patient had first episode of pulmonary emboli in September of 2017 confirmed by CAT scan. The patient had progressive shortness of breath subsequently. A repeat CAT scan of the chest on March 15, 2018 confirmed that she again has a new pulmonary emboli, subsequently referred to me for further evaluation and treatment. PAST MEDICAL HISTORY: History of GERD, history of anxiety, history of UTI, history of hyperlipidemia. SOCIAL HISTORY: History of smoking in the past. FAMILY HISTORY: Noncontributory. ALLERGIES: NOT REPORTED. MEDICATIONS: At this time; 1. Carafate. 2. Protonix. 3. Diazepam. 4. Lipitor. 5. Eliquis. 6. Normal saline. 7. Levaquin. REVIEW OF SYSTEMS HEENT: Normal. CARDIAC: Normal. RESPIRATORY: History of multiple episodes of bronchitis. GI: Normal. : At the present time being treated for UTI. MUSCULOSKELETAL: Normal. SKIN AND BREASTS: Normal. NEUROENDOCRINE: Normal. PHYSICAL EXAMINATION GENERAL: A moderately built female. NECK: No adenopathy. HEART: Within normal limits. LUNGS: Few rales. ABDOMEN: Soft. RECTAL AND VAGINAL: Deferred. BREASTS: Differed. CENTRAL NERVOUS SYSTEM: Essentially normal. LABORATORY DATA: Shows hemoglobin of 12.6, hematocrit 38.5, white count of 11,500, and platelets are reported at 346,000, slightly high lymphocyte count at 4100. Chemistry shows a sodium of 139, potassium 3.7, chloride 73, CO2 of 26, BUN 9, creatinine 0.7, glucose 100, calcium slightly high at 10.3, magnesium 1.5, bilirubin 0.5, SGOT 24, SGPT 28, alkaline phosphatase 76, total protein 7.4, albumin 3.8, and globulin slightly high at 3.6. IMAGING: Consists of Doppler of the lower extremities; however, this is not available for review. CT of the chest shows the patient to have small filling defects in the posterior left lower lobe segmental pulmonary arteries, appearing new since the prior exam of September 21, 2017. IMPRESSION 1. Recurrent pulmonary emboli, first episode being September of 2017. 2. History of gastroesophageal reflux disease. 3. History of anxiety. 4. History of urinary tract infection. 5. History of hyperlipidemia. 6. Hypercalcemia. 7. Hyperglobulinemia. PLAN, COMMENTS, AND SUGGESTIONS: Suggest lifetime anticoagulation. Thrombophilia profile at this time will be of academic interest. As the patient already has been started on Eliquis, the results will not be valid. Even though the calcium is not terribly high, a PTH level is suggested. Even though the globulins are not terribly high, quantitation of immunoglobulins is also suggested. Thank you very much for allowing me to participate in the management on this patient. Job#: [id number] THOM cc:Dr. Alexander Joseph
[2018-03-17] MEDS ORDERED: SUCRALFATE 1 GM/10 ML SUSP PO PRN (21:00)
== END 2018-03-17 20:12 | disposition home or self-care (01) | DRG 176 ==
LOC: ER 10:47 → ERHOLD 14:31 → UNDOADMIN 14:46 → ERHOLD 15:58 → MED/SURG2 15:58
PROVIDERS: ADMIT Family Medicine; ATTEND Family Medicine
DX: I26.99 Other pulmonary embolism without acute cor pulmonale (principal); N39.0 Urinary tract infection, site not specified; E78.5 Hyperlipidemia, unspecified; K21.9 Gastro-esophageal reflux disease without esophagitis; F41.9 Anxiety disorder, unspecified; E83.52 Hypercalcemia; R77.1 Abnormality of globulin; Z87.891 Personal history of nicotine dependence; J45.909 Unspecified asthma, uncomplicated; Z88.0 Allergy status to penicillin; Z88.2 Allergy status to sulfonamides; Z88.8 Allergy status to other drugs, medicaments and biological substances
CPT/HCPCS: 36415; 36600; 71260; 80053; 81001; 82550; 82553; 82784; 82805; 83735; 83880; 83970; 84484; 85025; 85379; 85610; 85730; 87040; 87086; 93005; 93970; 96361; 99284; J0696; J1956; J7030; Q9967

== ENCOUNTER 2018-10-15 18:53 | Emergency (ER) | payer MEDICARE ==
[~2018-10-15] VITALS: Ht 167.6 cm; Wt 75.3 kg
[~2018-10-15 18:53] MED LIST changes: +FLOVENT HFA12 G1 IH
[2018-10-15] MEDS ORDERED: DONNATAL/LIDOCAINE/MAALOX 30 ML SUSP PO STA (19:46)
--- NOTE | 2018-10-15 20:56 | Diagnostic Imaging Report ---
CXR 2 VIEW - [facility]D, 10/15/2018 12:00 AM Technique: CXR 2 VIEW - [facility]D Comparison: None available. Clinical history: Heartburn, pain Findings: Cardiomediastinal silhouette is within normal limits. No consolidation or edema. Incidental right lung granuloma. Mild biapical pleural-parenchymal scarring. Anterior wedging of several lower thoracic vertebral bodies. Impression: 1. Lines/Tubes: None 2. No acute abnormality. Signed by: Dr Ambar Szymanski MD on 10/15/2018 8:52 PM
[2018-10-15 21:03] VITALS: BP 158/73
== END 2018-10-15 21:23 | disposition home or self-care (01) ==
LOC: FSED 18:53
DX: K21.0 Gastro-esophageal reflux disease with esophagitis (principal); R10.13 Epigastric pain; E78.5 Hyperlipidemia, unspecified; F41.9 Anxiety disorder, unspecified; Z86.711 Personal history of pulmonary embolism
CPT/HCPCS: 71046; 93005; 99283

== ENCOUNTER → 2019-01-02 | Outpatient (CLI) | payer MEDICARE | LOC: MRI 09:30 | PROVIDERS: ATTEND Family Medicine | DX: M25.571 Pain in right ankle and joints of right foot (principal); L03.116 Cellulitis of left lower limb ==

== ENCOUNTER 2019-02-17 10:25 | Emergency (ER) | payer MEDICARE ==
[~2019-02-17] VITALS: Ht 167.6 cm; Wt 75.3 kg
[2019-02-17 11:54] VITALS: BP 147/86
== END 2019-02-17 11:58 | disposition home or self-care (01) ==
LOC: FSED 10:25
DX: L03.115 Cellulitis of right lower limb (principal); I26.99 Other pulmonary embolism without acute cor pulmonale; K21.9 Gastro-esophageal reflux disease without esophagitis
CPT/HCPCS: 99282

== ENCOUNTER 2019-03-04 08:55 | Emergency (ER) | payer MEDICARE ==
[~2019-03-04] VITALS: Ht 165.1 cm; Wt 75.0 kg
[2019-03-04] MEDS ORDERED: SODIUM CHLORIDE 0.9% 500ML 500 ML IV STA (09:38)
--- NOTE | 2019-03-04 10:20 | Diagnostic Imaging Report ---
EXAMINATION: PA and lateral views of the chest. COMPARISON: Chest 2 views 10/15/2018 CLINICAL HISTORY: Cough and wheezing DISCUSSION: Lines/tubes: None. Lungs: The lungs are well inflated. Stable 6 mm calcified granuloma in the right lower lobe. There is no evidence of pneumonia or pulmonary edema. Pleura: There is no pleural effusion or pneumothorax. Heart and mediastinum: Cardiomediastinal silhouette is unremarkable. Pulmonary vasculature is normal. Bones and soft tissues: No acute bony abnormalities. Stable age-appropriate degenerative changes in the thoracic spine IMPRESSION: No acute cardiopulmonary abnormalities. Signed by: Dr. Kishan Carvalho M.D. on 03/04/2019 10:16 AM
[2019-03-04] MEDS ORDERED: FAMOTIDINE 20 MG/2 ML VIAL IV ONE (10:30)
[2019-03-04 11:21] VITALS: BP 172/94
== END 2019-03-04 11:17 | disposition home or self-care (01) ==
LOC: FSED 08:55
DX: R07.89 Other chest pain (principal); R06.00 Dyspnea, unspecified; J98.4 Other disorders of lung; Z86.711 Personal history of pulmonary embolism
CPT/HCPCS: 36415; 71046; 80053; 82553; 84484; 85025; 85379; 93005; 99284; J7040

== ENCOUNTER 2019-10-31 12:46 | Emergency (ER) | payer MEDICARE ==
[~2019-10-31] VITALS: Ht 167.6 cm; Wt 68.0 kg
[2019-10-31 14:10] VITALS: BP 147/89
== END 2019-10-31 14:25 | disposition home or self-care (01) ==
LOC: FSED 12:46
DX: R05 Cough (principal); J20.9 Acute bronchitis, unspecified; I50.9 Heart failure, unspecified; Z86.711 Personal history of pulmonary embolism; Z87.39 Personal history of other diseases of the musculoskeletal system and connective tissue
CPT/HCPCS: 99282

== ENCOUNTER 2020-05-24 08:45 | Emergency (ER) | payer MEDICARE ==
[~2020-05-24] VITALS: Ht 165.1 cm; Wt 70.3 kg
--- NOTE | 2020-05-24 09:44 | Emergency Department Note ---
History of Present Illnes History of Present Illness Chief Complaint: cough/mild wheezing History of Present Illness This is a 75 year old female. was doing well until 2 days ago then productive(clear) cough, mild wheezing, + intermittent chest tightness which according to pt happens when her allergies act up. Historian: Patient Arrival Mode: Car History limited by: condition of the patient (normal) Upper Leather Cutter Required: No Onset (how long ago): day(s) (2) Location: see above Quality: see above Radiation: Reports non-radiation Severity: mild Onset quality: gradual Duration (how long): day(s) (2) Timing of current episode: intermittent Progression: waxing and waning Chronicity: recurrent Context: Denies recent illness, Denies recent surgery, Denies recent immobilization, Denies recent travel, Denies trauma/injury, Denies new medications, Denies hx of DVT/PE, Denies non-compliance w/ medications Relieving factors: none Exacerbating factors: none Associated symptoms: Reports cough, Reports headaches (intermittent); Denies confusion, Denies chest pain, Denies diaphoresis, Denies fever/chills, Denies loss of appetite, Denies malaise, Denies nausea/vomiting, Denies rash, Denies seizure, Denies shortness of breath, Denies syncope, Denies weakness Treatments prior to arrival: none Past Medical/Family History Physician Review I have reviewed the patient's past medical and family history. Any updates have been documented here. Past Medical History Recent Fever: No Clinical Suspicion of Infectio: No New/Unexplained Change in Ment: No Past Medical History: CHF, Anxiety, GERD, Hyperlipedemia Other Medical History: lymphadema pulmonary embolism PE Other Surgery: oopherectomy Social History Smoking Cessation: Never Smoker Counseling Performed: No Alcohol Use: None Any Illegal Drug Use: No Physically hurt or threatened: No Other Last Tetanus: UNKNOWN Any Pre-Existing Lines (PICC,: No Review of Systems Review of Systems Constitutional: Reports no symptoms EENTM: Reports no symptoms Cardiovascular: Reports as per HPI Respiratory: Reports as per HPI Gastrointestinal: Reports no symptoms Genitourinary: Reports no symptoms Musculoskeletal: Reports no symptoms Integumentary: Reports no symptoms Neurological: Reports no symptoms Psychological: Reports no symptoms Endocrine: Reports no symptoms Hematological/Lymphatic: Reports no symptoms Review of other systems: All other systems negative Physical Exam Related Data Allergies: Coded Allergies: cephalexin (Verified Allergy, Severe, 03/04/19) pseudoephedrine (Verified Allergy, Severe, 03/04/19) Sulfa (Sulfonamide Antibiotics) (Verified Allergy, Mild, 03/15/18) diphenhydramine (Verified Allergy, Mild, 03/15/18) penicillin G (Verified Allergy, Mild, 03/15/18) hydralazine (Verified Allergy, Unknown, 03/15/18) furosemide (Verified Adverse Reaction, Unknown, 03/15/18) Uncoded Allergies: STEROIDS PACK (Allergy, Intermediate, ANXIETY, 09/29/17) ANTIHISTIMINES (Allergy, Mild, 02/01/10) Triage Vital Signs Vital Signs Date Time Temp Pulse Resp B/P (MAP) Pulse Ox O2 Delivery O2 Flow Rate FiO2 05/24/20 08:49 98.9 91 18 126/78 98 Vital signs reviewed: Yes Physical Exam CONSTITUTIONAL Constitutional: Present well-developed, Present well-nourished HENT HENT: Present normocephalic, Present atraumatic, Present oropharynx clear/moist, Present nose normal HENT L/R: Present left ext ear normal, Present right ext ear normal EYES Eyes: Reports PERRL, Reports conjunctivae normal NECK Neck: Present ROM normal PULMONARY Pulmonary: Present effort normal, Present other (forced expiratory wheezes) CARDIOVASCULAR Cardiovascular: Present regular rhythm, Present heart sounds normal, Present capillary refill normal, Present normal rate GASTROINTESTINAL Abdominal: Present soft, Present nontender, Present bowel sounds normal GENITOURINARY Genitourinary: Present exam deferred SKIN Skin: Present warm, Present dry MUSCULOSKELETAL Musculoskeletal: Present ROM normal NEUROLOGICAL Neurological: Present alert, Present oriented x 3, Present no gross motor or sensory deficits PSYCHOLOGICAL Psychological: Present mood/affect normal, Present judgement normal Results Laboratory Lab results reviewed: Yes Laboratory comments CBC/CMP/CARDIAC ENZYMES/D DIMER ALL NORMAL. BNP= 103 Imaging Imaging results reviewed: Yes Impressions [place] [id number] Patient Name: MADDIE COOMBS MR #: [id number] : 1945 Age/Sex: 75/F Req #: [id number] Adm Physician: Ordered by: CHRISTIANO MENDOZA Report #: [id number] [facility] Room/Bed: _ Procedure: [id number] HOPD/CXR 2 VIEW - [facility] Exam Date: 05/24/20 Exam Time: 944 REPORT STATUS: Signed EXAMINATION: CXR 2 VIEW - [facility]D INDICATION: Chest pain. COMPARISON: Multiple prior chest x-rays including most recent on 03/04/2019. FINDINGS: TUBES and LINES: None. LUNGS: Normal lung volumes. Lungs are clear. No consolidations. No interval change in 6 mm calcified granuloma in the right lower lobe. PLEURA: No pleural effusion or pneumothorax. HEART AND MEDIASTINUM: The cardiomediastinal silhouette is unremarkable. BONES AND SOFT TISSUES: No acute osseous lesion. Soft tissues are unremarkable. UPPER ABDOMEN: No free air under the diaphragm. IMPRESSION: No acute thoracic radiographic abnormality. Signed by: Carlota Flores MD on 05/24/2020 10:14 AM Dictated By: CARLOTA FLORES MD [id number] Transcribed By: DONELL on 05/24/20 1014 COPY TO: CHRISTIANO MENDOZA~ Procedures 12 Lead ECG Interpretation ECG Interpretation : ECG: ECG 1 Upper Leather Cutter: Interpreted by ED physician Date: May 24, 2020 Time: 08:53 Rhythm: sinus rhythm Rate: normal BPM: 86 QRS axis: normal ST segments normal: Yes T waves normal: Yes Clinical Impression: normal ECG (nsr) Assessment & Plan Medical Decision Making MDM see below Assessment & Plan Final Impression: (1) Acute bronchitis (2) Reactive airway disease (3) Seasonal allergies Depart Disposition: HOME, SELF-CARE Last Vital Signs Date Time Temp Pulse Resp B/P (MAP) Pulse Ox O2 Delivery O2 Flow Rate FiO2 05/24/20 08:49 98.9 91 18 126/78 98 Home Meds Active Scripts Azithromycin (Z-SAMUEL) 250 Mg Tablet, 250 MG PO UD, #1 UDPKT 1 Refill Z-Pack Prov:CHRISTIANO MENDOZA 05/24/20 Albuterol Sulfate (ALBUTEROL SULFATE) 2.5 Mg/3 Ml Vial.neb, 2.5 MG INH Q4HR PRN for COUGH, #60 UNIT PRN COUGH, WHEEZING, SHORTNESS OF BREATH Prov:CHRISTIANO MENDOZA 05/24/20 Albuterol Sulf* (PROAIR HFA INHALER*) 8.5 Gm Inh, 2 INH PO Q4HR PRN for COUGH, #1 INH PRN COUGH, WHEEZING, SHORTNESS OF BREATH Prov:CHRISTIANO MENDOZA 05/24/20 Fluticasone Propionate (FLOVENT HFA) 12 Gm Aer.w.adap, 110 MCG IH Q12HR, #1 INH 1 Refill Prov:BILLY TRAN MD, [facility] 03/17/18 Reported Medications Sucralfate (CARAFATE) 1 Gm/10 Ml Oral.susp, 1 GM PO PRN, ML 09/29/17 Atorvastatin Calcium (LIPITOR) 20 Mg Tablet, 20 MG PO DAILY, #30 TAB 09/29/17 Diazepam (VALIUM) 5 Mg Tablet, 5 MG PO DAILY 09/29/17 Omeprazole Magnesium (PRILOSEC OTC) 20 Mg Tablet.dr, 20 MG PO DAILY 09/29/17 Metoprolol Tartrate (METOPROLOL TARTRATE) 25 Mg Tablet, 25 MG PO BID, TAB 09/29/17 CHRISTIANO MENDOZA May 24, 2020 09:44
--- NOTE | 2020-05-24 10:17 | Diagnostic Imaging Report ---
EXAMINATION: CXR 2 VIEW - [facility] INDICATION: Chest pain. COMPARISON: Multiple prior chest x-rays including most recent on 03/04/2019. FINDINGS: TUBES and LINES: None. LUNGS: Normal lung volumes. Lungs are clear. No consolidations. No interval change in 6 mm calcified granuloma in the right lower lobe. PLEURA: No pleural effusion or pneumothorax. HEART AND MEDIASTINUM: The cardiomediastinal silhouette is unremarkable. BONES AND SOFT TISSUES: No acute osseous lesion. Soft tissues are unremarkable. UPPER ABDOMEN: No free air under the diaphragm. IMPRESSION: No acute thoracic radiographic abnormality. Signed by: Ольга Anderson MD on 05/24/2020 10:14 AM
[2020-05-24 10:19] LABS: BASOPHILS # (AUTO) 0.1 (0.0-0.1); BASOPHILS % 0.8 % (0.0-1.0); EOSINOPHILS # (AUTO) 0.3 (0.0-0.4); EOSINOPHILS % 3.8 % (0.0-6.0); HEMATOCRIT 37.9 % (34.2-44.1); HEMOGLOBIN 12.2 g/dL (12.0-16.0); LYMPHOCYTES # (AUTO) 2.3 (1.0-3.2); LYMPHOCYTES % 29.4 % (18.0-39.1); MEAN CORPUSCULAR HEMOGLOBIN 26.9 pg (28-32); MEAN CORPUSCULAR HGB CONC 32.2 g/dL (31-35); MEAN CORPUSCULAR VOLUME 83.5 fL (81-99); MONOCYTES % 12.7 % (4.4-11.3); NEUTROPHILS # (AUTO) 4.2 (2.1-6.9); PLATELET COUNT 344 x10e3/uL (140-360); RED BLOOD COUNT 4.54 x10e6/uL (3.6-5.1); RED CELL DISTRIBUTION WIDTH 12.9 % (11.7-14.4)
--- OUTSIDE RECORDS SUMMARY | 2020-05-24 10:25 | XMS REPORT | Continuity of Care Document ---
Author Author [facility] t Organization [facility] Address [address] [place] [address] Phone Unavailable Care Team Providers Care Behavioral Pediatrician Name Role Phone Ascencion PEREZ MD PCP Adrianna MENDOZA Attphys Unavailable Jennifer DAVE Attphys Unavailable LORIN GIL Attphys Unavailable Ascencion PEREZ Attphys Unavailable Ascencion PEREZ Admphyascencion Unavailable Payers Payer Name Policy Type Policy Number Effective Date Expiration Date Ascencion weldon Medicare A & B [id number] 2012 00:00:00 [facility] AARP [id number] [facility] Problems Condition Name Condition Details Condition Category Status Onset Date Resolution Date Last Treatment Date Treating Clinician Comments Source Dyspnea Dyspnea Problem Active [facility] Pulmonary embolism Pulmonary emboli Problem Active [facility] Urinary tract infection UTI (urinary tract infection) Problem Active [facility] Allergies, Adverse Reactions, Alerts Allergy Name Allergy Type Status Severity Reaction(s) Onset Date Inacti ve Date Treating Clinician Comments Source Pseudoephedrine Allergy to Substance Active Severe 2019-03-04 00:0 0:00 [facility] Cephalexin Allergy to Substance Active Severe 2019-03-04 00:00:00 [facility] Sulfa (Sulfonamide Antibiotics) Allergy to Substance Active Mild 2018-03-15 00:00:00 [facility] Furosemide Propensity to adverse reactions Active 4 00:00:00 [facility] Hydralazine Allergy to Substance Active 2018-03-15 00:00:00 [facility] Diphenhydramine Allergy to Substance Active Mild 2018-03-15 00:0 0:00 [facility] Penicillin g Allergy to Substance Active Mild 2018-03-15 00:00:0 0 [facility] STEROIDS PACK Allergy to Substance Active Moderate ANXIETY 09-29 00:00:00 [facility] ANTIHISTIMINES Allergy to Substance Active Mild 2010-02-01 00:00 :00 [facility] Medications Ordered Medication Name Filled Medication Name Start Date Stop Da te Current Medication? Ordering Clinician Indication Dosage Frequency Signature (SIG) Comments Components Source Fluticasone Propionate (Flovent Hfa) 12 Gm Aer.w.adap Fluticasone Propionate (Flovent Hfa) 12 Gm Aer.w.adap 2018-03-17 00:00:00 Yes Hakeem Joseph Md [address] [facility] Atorvastatin Calcium (Lipitor) 20 Mg Tablet Atorvastat in Calcium (Lipitor) 20 Mg Tablet Yes 20 Daily [facility] Diazepam (Valium) 5 Mg Tablet Diazepam (Valium) 5 Mg Tablet Yes 5 Daily [facility] Metoprolol Tartrate 25 Mg Tablet Metoprolol Tartrate 25 Mg Tablet Yes 25 Twice A Day [facility] Omeprazole Magnesium (Prilosec Otc) 20 Mg Tablet.dr Abdalla eprazole Magnesium (Prilosec Ot) 20 Mg Tablet. Yes 20 Daily [facility] Sucralfate (Carafate) 1 Gm/10 Ml Oral.susp Sucralfate (Carafate) 1 Gm/10 Ml Oral.susp Yes 1 As Needed [facility] Rivaroxaban (Xarelto) 10 Mg Tablet, 15 Mg Oral Rivarox aban (Xarelto) 10 Mg Tablet, 15 Mg Oral 2018-03-17 00:00:00 No 15 Daily [facility] Procedures This patient has no known procedures. Encounters Start Date/Time End Date/Time Encounter Type [facility] Encounter ID Source 2019-10-31 12:46:00 2019-10-31 14:25:00 Departed Emergency Room [facility] [id number] [facility] 2019-03-04 08:55:00 2019-03-04 11:17:00 Departed Emergency Room 1 SHAR DAVE [facility] [id number] [facility] 2019-02-17 10:25:00 2019-02-17 11:58:00 Departed Emergency Room [facility] [id number] [facility] 2019-01-02 09:30:00 2019-01-02 09:30:00 Registered Clinic [facility] [id number] [facility] 2018-10-15 18:53:00 2018-10-15 21:23:00 Departed Emergency Room 1 LORIN GIL [facility] [id number] [facility] 2018-09-21 09:57:00 2018-09-21 09:57:00 Registered Clinic 3 CHRIS PEREZ [facility] [id number] [facility] 2018-03-15 14:31:00 2018-03-17 20:12:00 Discharged Inpatient 1 SHAR DAVE [facility] [id number] [facility] 2017-09-29 10:40:00 2017-09-29 16:58:00 Departed Emergency Room [facility] [id number] [facility] 2017-09-22 16:01:00 2017-09-23 09:41:00 Discharged Inpatient ER CHRIS PEREZ [facility] [id number] [facility] Results Test Description Test Time Test Comments Results Result Comments Source CXR 2 VIEW - HOPD 2020-05-24 10:12:00 [place] [address] Patient Name: MADDIE COOMBS MR #: [id number] : 1945 Age/Sex: 75/F Req #: [id number] Adm Physician: Ordered by: CHRISTIANO MENDOZA Report #: [id number] Location: [facility] Room/Bed: Procedure: HOPD/CXR 2 VIEW - HOPD Exam Date: 05/24/20 Exam Time: 944 REPORT STATUS: Signed EXAMINATION: CXR 2 VIEW - HOPD INDICATION: Chest pain. COMPARISON: Multiple prior chest x-rays including most recent on 03/04/2019. FINDINGS: TUBES and LINES: None. LUNGS: Normal lung volumes. Lungs are clear. No consolidations. No interval change in 6 mm calcified granuloma in the right lower lobe. PLEURA: No pleural effusion or pneumothorax. HEART AND MEDIASTINUM: The cardiomediastinal silhouette is unremarkable. BONES AND SOFT TISSUES: No acute osseous lesion. Soft tissues are unremarkable. UPPER ABDOMEN: No free air under the diaphragm. IMPRESSION: No acute thoracic radiographic abnormality. Signed by: Carlota Flores MD on 05/24/2020 10:14 AM Dictated By: CARLOTA FLORES MD 1014 Transcribed By: DONELL on 05/24/20 1014 COPY TO: CHRISTIANO MENDOZA D-Dimer Quantitative (PE/DVT) 2019-03-04 11:04:00 Test Item D-Dimer Quantitative (PE/DVT) (test code = 50400-7 67 0- 400 H As with all in vitro diagnostic tests, the test results should be interpreted by the physician in conjunction with clinical findings and other test results.Test results are reported in NEW D-dimer units(ug/mLFEU).[facility] (PE/DVT)2019-03-04 11:04:00* Test Item Value Reference Range Interpretation Comments D-Dimer Quantitative (PE/DVT) (test code = 66155-4) 674 0- 400 H As with all in vitro diagnostic tests, the test results should be interpreted by the physician in conjunction with clinical findings and other test results.Test results are reported in NEW D-dimer units(ug/mLFEU).[facility] - [id number] 10:15:00 [facility] [address] [place] [address] Patient Name: MADDIE COOMBS MR #: [id number] : 1945 Age/Sex: 73/F Req #: [id number] Adm Physician: Ordered by: SHAR DAVE MD Report #: [id number] Location: [facility] Room/Bed: Procedure: [id number] HOPD/C XR 2 VIEW - HOPD Exam Date: 03/04/19 Exam Time: 1000 REPORT STATUS: Signed EXAMIN ATION: PA and lateral views of the chest. COMPARISON: Chest 2 views 9 CLINICAL HISTORY: Cough and wheezing DISCUSSION: Lines/tu bes: None. Lungs: The lungs are well inflated. Stable 6 mm calcified gran uloma in the right lower lobe. There is no evidence of pneumonia or pulmonary edema. Pleura: There is no pleural effusion or pneumothorax. Heart an d mediastinum: Cardiomediastinal silhouette is unremarkable. Pulmonary vas culature is normal. Bones and soft tissues: No acute bony abnormalities. Stable age-appropriate degenerative changes in the thoracic spine IMPRESS ION: No acute cardiopulmonary abnormalities. Signed by: Dr. Kishan Walker M.D. on 03/04/2019 10:16 AM Dictated By: KISHAN WALKER MD 1016 Transcribed B y: DONELL on 03/04/19 1016 COPY TO: SHAR DAVE MD CXR 2 VIEW - [id number] 20:51:00 [place] [address] Patient Name: MADDIE COOMBS MR #: [id number] : 1945 Age/Sex: 73/F Req #: [id number] Adm Physician: Ordered by: LORIN GIL MD Report #: [id number] Location: [facility] Room/Bed: Procedure: [id number] HOP D/CXR 2 VIEW - HOPD Exam Date: 10/15/18 Exam Time: 2 REPORT STATUS: Signed CXR 2 VIEW - HOPD, 10/15/2018 12:00 AM Technique: CXR 2 VIEW - HOPD Comparison: N one available. Clinical history: Heartburn, pain Findings: Cardiomedias tinal silhouette is within normal limits. No consolidation or edema. Incidenta l right lung granuloma. Mild biapical pleural-parenchymal scarring. Anterior w edging of several lower thoracic vertebral bodies. Impression: 1. Lines/T ubes: None 2. No acute abnormality. Signed by: Dr Andrea Tinsley MD on 10/15/2018 8:52 PM Dictated By: ANDREA TINSLEY MD 51 Transcribed By: DONELL on 10/15/182051 COPY TO: LORIN GIL MD CT CHEST [id number] 12:06:00 [place] [address] Patient Name: MADDIE COOMBS MR #: [id number] : 1945 Age/Sex: 73/F Req #: [id number] Adm Physician: Ordered by: CHRIS PEREZ MD Report #: [id number] Location: CT Room/Bed: Procedure: [id number] CT/C T CHEST W Exam Date: 09/21/18 Exam Time: 1140 REPORT STATUS: Signed EXAMINATION: CT of the chest with contrast, PE protocol. TECHNIQUE: Spiral CT images of th e chest were performed from the lung apices through the level of the adrenal g lands after the IV administration of 100 cc of Isovue 300. Thin section recon structions were obtained with special concentration on the pulmonary arteries. COMPARISON: CT chest with contrast 03/15/2018 CLINICAL HISTORY:Elevated d-dimer DISCUSSION: Lungs: Tiny eccentric filling defect in seg mental branch to right lower lobe posterobasal segment (series 2, image 63), w hich was not clearly seen on the previous exam. Otherwise no other filling def ects are noted in the main, right or left pulmonary arteries to the segmental level. Stable calcified granuloma in the superior segment of the right lower l obe (series 3, image 50). Stable linear opacities in the lateral right lower lobe (series 3, image 63) and to a lesser degree lingula and lateral left low er lobe (series 3, image 67) likely representing scarring. No consolidation. No pulmonary nodules. Stable mild biapical pleuroparenchymal scarring. Airw ays: Airways are clear, without endobronchial lesions. Pleura: <There is no evidence of pleural effusion or pneumothorax.> Heart and mediastinum: Thyroid is unremarkable. Heart size is normal. No pericardial effusion. Aorta is nonaneurysmal. Main pulmonary artery is normal in caliber. Lymph nodes: No mediastinal, hilar or axillary adenopathy. Abdomen: The visualized portions of the liver, spleen, pancreas, left kidney and adrenal gland are unremarkable. Stable 1.7 x 1.5 cm fluid density simple cyst in the right anterior interpolar region (series 2, image 116 and sagittal image 42). Bones and soft tissues: No progressive lytic lesions. Multilevel degenerative disc changes in the thoracic spine. Mild osteopenia. Soft tissues are unremarkable. IMPRESSION: 1. Tiny eccentric filling defect in a segmental branch to the right lower lobe posterobasal segment, which likely represents a chronic rather than acute small pulmonary embolus. No other filling defects are noted in the pulmonary arterial system. S igned by: Dr. Kishan Walker M.D. on 09/21/2018 12:21 PM Dictated By: KISHAN WALKER MD 1221 Transcribed By: DONELL on 09/21/18 1221 COPY TO: CHRIS PEREZ MD Blood Urea [id number] 11:37:00* Test Item Value Reference Range Interpretation Comments Blood Urea Nitrogen (test code = 3094-0) 13 04-06 [facility]2019-[facility] 11:37:00* Test Item Value Reference Range Interpretation Comments Creatinine (test code = 2160-0) 0.77 0.57-1.11 [facility]BUN/Creatinine Vrerh7398-81-34 11:37:00* Test Item Value Reference Range Interpretation Comments BUN/Creatinine Ratio (test code = 3097-3) 17 - [facility] PasoEstimat Glomerular Filtration Rate 2018-09-21 11:37:00* Test Item Value Reference Range Interpretation Comments Estimat Glomerular Filtration Rate (test code = 509839677) > 60 >60 Ranges were taken from the National Kidney Disease Education Program and the [place] [employer] literature.Reference ranges:60 or greater: Obfetu47-96 ( for 3 consecutive months): Chronic kidney disease 15 or less: Kidney failureCHI [facility] – AtlantaBlood Urea Jrrktsvs6509-94-38 11:37:00* Test Item Value Reference Range Interpretation Comments Blood Urea Nitrogen (test code = 3094-0) 13 04-06 [facility] PasoCreatinine2019-01-10 11:37:00* Test Item Value Reference Range Interpretation Comments Creatinine (test code = 2160-0) 0.77 0.57-1.11 [facility] PasoBUN/Creatinine Zloqt7239-02-73 11:37:00* Test Item Value Reference Range Interpretation Comments BUN/Creatinine Ratio (test code = 3097-3) 03-06 [facility] PasoEstimat Glomerular Filtration Rate 2018-09-21 11:37:00* Test Item Value Reference Range Interpretation Comments Estimat Glomerular Filtration Rate (test code = 390070489) > 60 >60 Ranges were taken from the National Kidney Disease Education Program and the [place] [employer] literature.Reference ranges:60 or greater: Hgenqs26-90 ( for 3 consecutive months): Chronic kidney disease 15 or less: Kidney failureUniversity Medical Center of [facility] PasoBlood Urea Djchhthn5625-56-25 11:37:00* Test Item Value Reference Range Interpretation Comments Blood Urea Nitrogen (test code = 3094-0) 13 04-06 [facility] PasoCreatinine2019-01-10 11:37:00* Test Item Value Reference Range Interpretation Comments Creatinine (test code = 2160-0) 0.77 0.57-1.11 [facility] PasoBUN/Creatinine [id number] 11:37:00* Test Item Value Reference Range Interpretation Comments BUN/Creatinine Ratio (test code = 3097-3) 03-06 [facility] PasoEstimat Glomerular Filtration Rate 2018-09-21 11:37:00* Test Item Value Reference Range Interpretation Comments Estimat Glomerular Filtration Rate (test code = 004460497) > 60 >60 Ranges were taken from the National Kidney Disease Education Program and the [place] [employer] literature.Reference ranges:60 or greater: Rdemym79-79 ( for 3 consecutive months): Chronic kidney disease 15 or less: Kidney failureUniversity Medical Center of El PasoParathyroid Tfncusz6939-52-66 05:23:00* Test Item Value Reference Range Interpretation Comments Parathyroid Hormone (test code = 2731-8) [facility] PasoCalcium (Send out)2018-03-21 05:23:00* Test Item Value Reference Range Interpretation Comments Calcium (Send out) (test code = 11994-5) 9.5 8.7-10.3 [facility] PasoParathyroid Hormone Interpretation 2018-03-21 05:23:00* Test Item Value Reference Range Interpretation Comments Parathyroid Hormone Interpretation (test code = Parathyroid Hormone Interpretation) Comment . Interpretation Intact PTH Calcium (pg/mL) (mg/dL)Normal 15 - 65 8.6 - 10.2Pr imary Hyperparathyroidism >65 >10.2Secondary Hyperparathyroidism >65 <10.2Non-Parathyroid Hypercalcemia <65 >10.2Hypoparathyroidism <15 < 8.6Non- Parathyroid Hypocalcemia 15 - 65 < 8.6Performed at: for[MD][address] [id number] Director: Estuardo Angel MD, Phone: [phone] at: [facility] [employer] [id number] Director: Trevon Monreal MD, Phone: [phone] [facility] PasoBlood Qfewduc5602-17-50 11:57:00* Test Item Value Reference Range Interpretation Comments Blood Culture (test code = 92211617) NO GROWTH AFTER 5 DAYS, FINAL REPORT [facility] PasoImmunoglobulin [id number] 14:08:00* Test Item Value Reference Range Interpretation Comments Immunoglobulin A (test code = 2458-8) 269 87-352 [facility] PasoImmunoglobulin [id number] 14:08:00* Test Item Value Reference Range Interpretation Comments Immunoglobulin G (test code = 2465-3) 375 850-2139 L [facility] PasoImmunoglobulin [id number] 14:08:00* Test Item Value Reference Range Interpretation Comments Immunoglobulin M (test code = 2472-9) 80 26-217 Performed at: for[MD][address] [id number] Director: Estuardo Angel MD, Phone: [phone] Medical Center of El PasoD-Dimer Quantitative (PE/DVT)2018-03-17 17:15:00* Test Item Value Reference Range Interpretation Comments D-Dimer Quantitative (PE/DVT) (test code = 29909-9) 0.26 0. 00-0.45 As with all in vitro diagnostic tests, the test results should be interpreted by the physician in conjunction with clinical findings and other test results.Test results are reported in NEW D-dimer units(ug/mLFEU).[facility] PasoD-Dimer Quantitative (PE/DVT)2018-03-17 17:15:00* Test Item Value Reference Range Interpretation Comments D-Dimer Quantitative (PE/DVT) (test code = 63859-7) 0.26 0. 00-0.45 As with all in vitro diagnostic tests, the test results should be interpreted by the physician in conjunction with clinical findings and other test results.Test results are reported in NEW D-dimer units(ug/mLFEU).[facility] PasoBlood Gwvogak8394-56-07 11:57:00* Test Item Value Reference Range Interpretation Comments Blood Culture (test code = 31763525) NO GROWTH AFTER 48 HOURS [facility] PasoCT CHEST [id number] 13:47:00 [facility] [address] [address] Patient Name: MADDIE COOMBS MR #: [id number] : Age/Sex: 72/F Req #: [id number] Adm Physician: Ordered by: HERNAN YAN SHOE PATTERNMAKER Report #: [id number] Location: ER Room/Bed: Procedure: [id number] CT/CT CHEST W Exam Date: 12/28 Exam Time: 1303 REPORT STATUS: Signed E XAM: CT Chest WITH contrast 03/15/2018 10:50 AM INDICATION: Difficulty breathing . Pulmonary embolism. COMPARISON: September 21, 2017. TECHNIQUE: Chest was s canned utilizing a multidetector helical scanner from the lung apex through th e level of the adrenal glands without administration of IV contrast. Coronal a nd sagittal reformations were obtained. Pulmonary embolism protocol was perfor med. IV CONTRAST: 100 mL of Isovue-370 RADIATION DOSE: Total DLP: 471.84 mGy*cm Estimated effective dose: (DLP x 0.014 x size factor) mSv COMPLICATIONS: None FINDINGS: LINES/ TU BES: None. LUNGS AND AIRWAYS: Tiny filling defects present in the posterior left lower lobe segmental pulmonary arteries as seen on axial images 63 and 64 series 2 which appears new since the prior examination. Remainder filling de fects previously present are less conspicuous or resolved. Calcified granuloma in the super segment of the right lower lobe. Right lower lobe, lingular and left basilar linear subsegmental atelectasis. PLEURA: Biapical pleural-pa renchymal scarring. HEART AND MEDIASTINUM: The thyroid gland is normal. No mediastinal, hilar or axillary lymphadenopathy. The heart is normal in size.. There is no pericardial effusion. Mild thickening of the distal esophagus. UPPER ABDOMEN: Limited non-contrast views of the upper abdomen show a 1.7 cm low-attenuation lesion in the anterior interpolar region of the right kidney, most suggestive of a cyst.. The adrenal glands are normal. BONES: No acute osseous abnormality. Degenerative changes of the lower thoracic spine. SOFT TISSUES: Unremarkable. IMPRESSION: 1. Small filling defects in the posterior left lower lobe segmental pulmonary arteries appear new since t he prior examination. However, previously present small bilateral lower lobe p ulmonary emboli are either decreased or resolved. Signed by: Dr. Elzbieta Teresa M.D. on 03/15/2018 1:59 PM Dictated By: HELENA Mantilla 5184 Transcribed By: DONELL on 03/15/18 9400 COPY TO: HERNAN YAN NP Arterial Blood [id number] 12:30:00* Test Item Value Reference Range Interpretation Comments Arterial Blood pH (test code = 2744-1) 7.51 7.31-7.41 H [facility] PasoAr[facility]ial Blood Partial Pressure CO2 2018-03-15 12:30:00* Test Item Value Reference Range Interpretation Comments Arterial Blood Partial Pressure CO2 (test code = 2019-8) 30 41-51 L [facility] PasoArterial Blood Partial Pressure O2 2018-03-15 12:30:00* Test Item Value Reference Range Interpretation Comments Arterial Blood Partial Pressure O2 (test code = 2018-8) 78 80-105 L [facility] PasoArterial Blood [id number] 12:30:00* Test Item Value Reference Range Interpretation Comments Arterial Blood HCO3 (test code = 1960-4) [facility] [id number] 12:30:00* Test Item Value Reference Range Interpretation Comments Arterial Blood Base Excess (test code = 1925-7) 1.0 -2-3 [facility] Oxygen Saturation 2018-03-15 12:30:00* Test Item Value Reference Range Interpretation Comments Arterial Blood Oxygen Saturation (test code = 2708-6) 100.0 95-98 H [facility] PasoFiO22018-07-04 12:30:00* Test Item Value Reference Range Interpretation Comments FiO2 (test code = FiO2) 97 [facility] Blood [id number] 12:30:00* Test Item Value Reference Range Interpretation Comments Arterial Blood pH (test code = 2744-1) 7.51 7.31-7.41 H [facility] Blood Partial Pressure CO2 2018-03-15 12:30:00* Test Item Value Reference Range Interpretation Comments Arterial Blood Partial Pressure CO2 (test code = 2018-8) 30 41-51 L [facility] PasoAr[facility] Blood Partial Pressure O2 2018-03-15 12:30:00* Test Item Value Reference Range Interpretation Comments Arterial Blood Partial Pressure O2 (test code = 2019-8) 78 80-105 L [facility] Blood [id number] 12:30:00* Test Item Value Reference Range Interpretation Comments Arterial Blood HCO3 (test code = 1960-4) [facility] Blood Base [id number] 12:30:00* Test Item Value Reference Range Interpretation Comments Arterial Blood Base Excess (test code = 1925-7) 1.0 -2-3 [facility] Blood Oxygen Saturation 2018-03-15 12:30:00* Test Item Value Reference Range Interpretation Comments Arterial Blood Oxygen Saturation (test code = 2708-6) 100.0 95-98 H [facility] PasoFiO22018-07-04 12:30:00* Test Item Value Reference Range Interpretation Comments FiO2 (test code = FiO2) 97 [facility] PasoCreatine Kinase [id number] 12:29:00* Test Item Value Reference Range Interpretation Comments Creatine Kinase MB (test code = 69444-6) 1.10 0-5.0 [facility] PasoTroponin [id number] 12:29:00* Test Item Value Reference Range Interpretation Comments Troponin I (test code = RID8961) 0.012 0-0.300 [facility] PasoCreatine Kinase [id number] 12:29:00* Test Item Value Reference Range Interpretation Comments Creatine Kinase MB (test code = 89565-6) 1.10 0-5.0 [facility] PasoTroponin L4305-44-00 12:29:00* Test Item Value Reference Range Interpretation Comments Troponin I (test code = HPQ3757) 0.012 0-0.300 [facility] PasoB-Type Natriuretic Trcrbst1531-32-44 12:23:00* Test Item Value Reference Range Interpretation Comments B-Type Natriuretic Peptide (test code = 16690-5) 68.1 0-100 [facility] PasoB-Type Natriuretic Ibxaadz0185-32-68 12:23:00* Test Item Value Reference Range Interpretation Comments B-Type Natriuretic Peptide (test code = 90172-6) 68.1 0-100 [facility] Dallasodium Caofc3444-70-01 12:19:00* Test Item Value Reference Range Interpretation Comments Sodium Level (test code = 2951-2) 139 136-145 [facility] PasoPotassium Wagcw3070-19-72 12:19:00* Test Item Value Reference Range Interpretation Comments Potassium Level (test code = 2823-3) 3.7 3.5-5.1 [facility] PasoChloride Zbivj1750-11-33 12:19:00* Test Item Value Reference Range Interpretation Comments Chloride Level (test code = 2075-0) 103 98-107 [facility] PasoCarbon Dioxide Aojiz8301-97-27 12:19:00* Test Item Value Reference Range Interpretation Comments Carbon Dioxide Level (test code = 2028-9) 26 22-29 [facility] PasoAnion Ikj0253-01-45 12:19:00* Test Item Value Reference Range Interpretation Comments Anion Gap (test code = 87026-5) 13.7 8-16 [facility] PasoBlood Urea Bqxasnpr2173-53-45 12:19:00* Test Item Value Reference Range Interpretation Comments Blood Urea Nitrogen (test code = 3094-0) 9 7-26 [facility] PasoCreatinine2018-07-04 12:19:00* Test Item Value Reference Range Interpretation Comments Creatinine (test code = 2160-0) 0.77 0.57-1.11 [facility] PasoBUN/Creatinine Zdbfy7189-86-92 12:19:00* Test Item Value Reference Range Interpretation Comments BUN/Creatinine Ratio (test code = 3097-3) 12 6-25 [facility] PasoEstimat Glomerular Filtration Rate 2018-03-15 12:19:00* Test Item Value Reference Range Interpretation Comments Estimat Glomerular Filtration Rate (test code = 42347-0) 60- >60 Ranges were taken from the National Kidney Disease Education Program and the [facility] literature.Reference ranges:60 or greater: Ginpwp32-17 ( for 3 consecutive months): Chronic kidney disease 15 or less: Kidney failureUniversity [facility] Center of [facility] PasoGlucose Uoick5762-31-30 12:19:00* Test Item Value Reference Range Interpretation Comments Glucose Level (test code = CPI3950) 100 74-118 [facility] PasoCalcium Fkgmi3316-42-12 12:19:00* Test Item Value Reference Range Interpretation Comments Calcium Level (test code = 90660-8) 10.3 8.4-10.2 H [facility] PasoMagnesium Qnzit7769-99-76 12:19:00* Test Item Value Reference Range Interpretation Comments Magnesium Level (test code = 11985-6) 1.5 1.3-2.1 [facility] Aorpqznef1621-05-26 12:19:00* Test Item Value Reference Range Interpretation Comments Total Bilirubin (test code = 1975-2) 0.5 0.2-1.2 [facility] PasoAspartate Amino Transf (AST/SGOT) 2018-03-15 12:19:00* Test Item Value Reference Range Interpretation Comments Aspartate Amino Transf (AST/SGOT) (test code = Aspartate Amino Transf (AST/SGOT)) 24 5-34 [facility] PasoAlanine Aminotransferase (ALT/SGPT) 2018-03-15 12:19:00* Test Item Value Reference Range Interpretation Comments Alanine Aminotransferase (ALT/SGPT) (test code = 1742-6) 28 0-55 [facility] PasoTotooele [facility] Xsrldkp5862-62-40 12:19:00* Test Item Value Reference Range Interpretation Comments Total Protein (test code = 2885-2) 7.4 6.5-8.1 [facility] PasoAlbumin2018-07-04 12:19:00* Test Item Value Reference Range Interpretation Comments Albumin (test code = 1751-7) 3.8 3.5-5.0 [facility] PasoGlobulin2018-07-04 12:19:00* Test Item Value Reference Range Interpretation Comments Globulin (test code = 21877-6) 3.6 2.3-3.5 H [facility] PasoAlbumin/Globulin Tmcsp6311-69-68 12:19:00 * Test Item Value Reference Range Interpretation Comments Albumin/Globulin Ratio (test code = 1759-0) 1.1 0.8-2.0 [facility] PasoAlkaline Zwyhviatqdo8750-35-81 12:19:00* Test Item Value Reference Range Interpretation Comments Alkaline Phosphatase (test code = 6768-6) 76 40-150 [facility] PasoCreatine Xqorxk2961-33-72 12:19:00* Test Item Value Reference Range Interpretation Comments Creatine Kinase (test code = 2157-6) 36 29-168 [facility] Dallasodium Zswgk2073-89-32 12:19:00* Test Item Value Reference Range Interpretation Comments Sodium Level (test code = 2951-2) 139 136-145 [facility] PasoPotassium Tdqpw4168-82-81 12:19:00* Test Item Value Reference Range Interpretation Comments Potassium Level (test code = 2823-3) 3.7 3.5-5.1 [facility] PasoChloride Rneky9552-66-59 12:19:00* Test Item Value Reference Range Interpretation Comments Chloride Level (test code = 2075-0) 103 98-107 [facility] PasoCarbon Dioxide Ejcfx7042-17-96 12:19:00* Test Item Value Reference Range Interpretation Comments Carbon Dioxide Level (test code = 2028-9) 26 22-29 [facility] PasoAnion Dgd9484-82-79 12:19:00* Test Item Value Reference Range Interpretation Comments Anion Gap (test code = 64601-1) 13.7 8-16 [facility] PasoGlucose Kkigl1944-63-70 12:19:00* Test Item Value Reference Range Interpretation Comments Glucose Level (test code = LDL5310) 100 74-118 [facility] PasoCalcium Oxcpx6971-56-62 12:19:00* Test Item Value Reference Range Interpretation Comments Calcium Level (test code = 22507-0) 10.3 8.4-10.2 H [facility] PasoMagnesium Davpg7618-02-87 12:19:00* Test Item Value Reference Range Interpretation Comments Magnesium Level (test code = 65186-8) 1.5 1.3-2.1 [facility] PasoTotal Ngijfztyh2261-40-14 12:19:00* Test Item Value Reference Range Interpretation Comments Total Bilirubin (test code = 1975-2) 0.5 0.2-1.2 [facility] PasoAspartate Amino Transf (AST/SGOT) 2018-03-15 12:19:00* Test Item Value Reference Range Interpretation Comments Aspartate Amino Transf (AST/SGOT) (test code = Aspartate Amino Transf (AST/SGOT)) 24 5-34 [facility] PasoAlanine Aminotransferase (ALT/SGPT) 2018-03-15 12:19:00* Test Item Value Reference Range Interpretation Comments Alanine Aminotransferase (ALT/SGPT) (test code = 1742-6) 28 0-55 [facility] PasoTotal Gihtvkg4310-02-61 12:19:00* Test Item Value Reference Range Interpretation Comments Total Protein (test code = 2885-2) 7.4 6.5-8.1 [facility] PasoAlbumin2018-07-04 12:19:00* Test Item Value Reference Range Interpretation Comments Albumin (test code = 1751-7) 3.8 3.5-5.0 [facility] PasoGlobulin2018-07-04 12:19:00* Test Item Value Reference Range Interpretation Comments Globulin (test code = 70852-0) 3.6 2.3-3.5 H [facility] PasoAlbumin/Globulin Vgxxw2586-58-23 12:19:00 * Test Item Value Reference Range Interpretation Comments Albumin/Globulin Ratio (test code = 1759-0) 1.1 0.8-2.0 [facility] PasoAlkaline Vetbkbduxtn8069-30-90 12:19:00* Test Item Value Reference Range Interpretation Comments Alkaline Phosphatase (test code = 6768-6) 76 40-150 [facility] PasoCreatine Aokzxi8772-72-28 12:19:00* Test Item Value Reference Range Interpretation Comments Creatine Kinase (test code = 2157-6) 36 29-168 [facility] PasoActivated Partial Thromboplast Time 2018-03-15 12:17:00* Test Item Value Reference Range Interpretation Comments Activated Partial Thromboplast Time (test code = 92287-3) 26.3 23.8-35.5 [facility] PasoActivated Partial Thromboplast Time 2018-03-15 12:17:00* Test Item Value Reference Range Interpretation Comments Activated Partial Thromboplast Time (test code = 01463-1) 26.3 23.8-35.5 [facility] PasoProthrombin Myyk5994-65-16 12:11:00* Test Item Value Reference Range Interpretation Comments Prothrombin Time (test code = 5902-2) 12.5 11.9-14.5 [facility] PasoProthromb Time International Ratio 2018-03-15 12:11:00* Test Item Value Reference Range Interpretation Comments Prothromb Time International Ratio (test code = 6301-6) 1.01 Oral Anticoagulant Therapy INR Values:1. Low Intensity Therapy 1.5 - 2.02 . Moderate Intensity Therapy 2.0 - 3.03. High Intensity Therapy(1) 2.5 - 3. 54. High Intensity Therapy(2) 3.0 - 4.05. Panic Value INR > 5.0 [facility] PasoProthrbeaumont hospitalin Aesg7741-06-54 12:11:00* Test Item Value Reference Range Interpretation Comments Prothrombin Time (test code = 5902-2) 12.5 11.9-14.5 [facility] PasoProthromb Time International Ratio 2018-03-15 12:11:00* Test Item Value Reference Range Interpretation Comments Prothromb Time International Ratio (test code = 6301-6) 1.01 Oral Anticoagulant Therapy INR Values:1. Low Intensity Therapy 1.5 - 2.02 . Moderate Intensity Therapy 2.0 - 3.03. High Intensity Therapy(1) 2.5 - 3. 54. High Intensity Therapy(2) 3.0 - 4.05. Panic Value INR > 5.0 [facility] PasoWhite Blood Jnuwg7302-38-79 12:03:00* Test Item Value Reference Range Interpretation Comments White Blood Count (test code = 6690-2) 11.50 4.8-10.8 H [facility] PasoRed Blood Aevlh4593-26-65 12:03:00* Test Item Value Reference Range Interpretation Comments Red Blood Count (test code = 789-8) 4.42 3.6-5.1 [facility] PasoHemoglobin2018-07-04 12:03:00* Test Item Value Reference Range Interpretation Comments Hemoglobin (test code = 75889-5) 12.6 12.0-16.0 [facility] PasoHematocrit2018-07-04 12:03:00* Test Item Value Reference Range Interpretation Comments Hematocrit (test code = 4544-3) 38.5 34.2-44.1 [facility] PasoMean Corpuscular Euvgfr9689-36-39 12:03:00* Test Item Value Reference Range Interpretation Comments Mean Corpuscular Volume (test code = 787-2) 87.1 81-99 [facility] PasoMean Corpuscular Sngxgufbvf3256-66-58 12:03:00* Test Item Value Reference Range Interpretation Comments Mean Corpuscular Hemoglobin (test code = 785-6) 28.5 28-32 [facility] PasoMean Corpuscular Hemoglobin Concent 2018-03-15 12:03:00* Test Item Value Reference Range Interpretation Comments Mean Corpuscular Hemoglobin Concent (test code = 786-4) 32.7 31-35 [facility] PasoRed Cell Distribution Lczzu5998-60-46 12:03:00* Test Item Value Reference Range Interpretation Comments Red Cell Distribution Width (test code = 91163-7) 12.2 11.7 -14.4 [facility] PasoPlatelet Hyzwp8011-59-50 12:03:00* Test Item Value Reference Range Interpretation Comments Platelet Count (test code = 777-3) 346 140-360 [facility] PasoNeutrophils (%) (Auto)2018-03-15 12:03:00 * Test Item Value Reference Range Interpretation Comments Neutrophils (%) (Auto) (test code = 24810-0) 52.7 38.7-80.0 [facility] PasoLymphocytes (%) (Auto)2018-03-15 12:03:00 * Test Item Value Reference Range Interpretation Comments Lymphocytes (%) (Auto) (test code = 736-9) 35.3 18.0-39.1 [facility] PasoMonocytes (%) (Auto)2018-03-15 12:03:00* Test Item Value Reference Range Interpretation Comments Monocytes (%) (Auto) (test code = 5905-5) 10.7 4.4-11.3 [facility] PasoEosinophils (%) (Auto)2018-03-15 12:03:00 * Test Item Value Reference Range Interpretation Comments Eosinophils (%) (Auto) (test code = 713-8) 0.5 0.0-6.0 [facility] PasoBasophils (%) (Auto)2018-03-15 12:03:00* Test Item Value Reference Range Interpretation Comments Basophils (%) (Auto) (test code = 706-2) 0.4 0.0-1.0 [facility] PasoIM GRANULOCYTES %2018-03-15 12:03:00* Test Item Value Reference Range Interpretation Comments IM GRANULOCYTES % (test code = IM GRANULOCYTES %) 0.4 0.0- 1.0 [facility] PasoNeutrophils # (Auto)2018-03-15 12:03:00* Test Item Value Reference Range Interpretation Comments Neutrophils # (Auto) (test code = 751-8) 6.1 2.1-6.9 [facility] PasoLymphocytes # (Auto)2018-03-15 12:03:00* Test Item Value Reference Range Interpretation Comments Lymphocytes # (Auto) (test code = 87324-4) 4.1 1.0-3.2 H [facility] PasoMonocytes # (Auto)2018-03-15 12:03:00* Test Item Value Reference Range Interpretation Comments Monocytes # (Auto) (test code = 742-7) 1.2 0.2-0.8 H [facility] PasoEosinophils # (Auto)2018-03-15 12:03:00* Test Item Value Reference Range Interpretation Comments Eosinophils # (Auto) (test code = 711-2) 0.1 0.0-0.4 [facility] PasoBasophils # (Auto)2018-03-15 12:03:00* Test Item Value Reference Range Interpretation Comments Basophils # (Auto) (test code = 704-7) 0.1 0.0-0.1 [facility] PasoAbsolute Immature Granulocyte (auto 2018-03-15 12:03:00* Test Item Value Reference Range Interpretation Comments Absolute Immature Granulocyte (auto (martha t code = Absolute Immature Granulocyte (auto) 0.05 0-0.1 [facility] PasoWhite Blood Eymvv2608-41-77 12:03:00* Test Item Value Reference Range Interpretation Comments White Blood Count (test code = 6690-2) 11.50 4.8-10.8 H [facility] PasoRed Blood Wdtdz5706-99-91 12:03:00* Test Item Value Reference Range Interpretation Comments Red Blood Count (test code = 789-8) 4.42 3.6-5.1 [facility] PasoHemoglobin2018-07-04 12:03:00* Test Item Value Reference Range Interpretation Comments Hemoglobin (test code = 22698-3) 12.6 12.0-16.0 [facility] PasoHematocrit2018-07-04 12:03:00* Test Item Value Reference Range Interpretation Comments Hematocrit (test code = 4544-3) 38.5 34.2-44.1 [facility] PasoMean Corpuscular Oyzvfi4082-29-97 12:03:00* Test Item Value Reference Range Interpretation Comments Mean Corpuscular Volume (test code = 787-2) 87.1 81-99 [facility] PasoMean Corpuscular Hphucuksnb0967-73-97 12:03:00* Test Item Value Reference Range Interpretation Comments Mean Corpuscular Hemoglobin (test code = 785-6) 28.5 28-32 [facility] PasoMean Corpuscular Hemoglobin Concent 2018-03-15 12:03:00* Test Item Value Reference Range Interpretation Comments Mean Corpuscular Hemoglobin Concent (test code = 786-4) 32.7 31-35 [facility] PasoRed Cell Distribution Rdobc4107-56-68 12:03:00* Test Item Value Reference Range Interpretation Comments Red Cell Distribution Width (test code = 72396-6) 12.2 11.7 -14.4 [facility] PasoPlatelet Cppla4430-65-84 12:03:00* Test Item Value Reference Range Interpretation Comments Platelet Count (test code = 777-3) 346 140-360 [facility] PasoNeutrophils (%) (Auto)2018-03-15 12:03:00 * Test Item Value Reference Range Interpretation Comments Neutrophils (%) (Auto) (test code = 30041-5) 52.7 38.7-80.0 [facility] PasoLymphocytes (%) (Auto)2018-03-15 12:03:00 * Test Item Value Reference Range Interpretation Comments Lymphocytes (%) (Auto) (test code = 736-9) 35.3 18.0-39.1 [facility] PasoMonocytes (%) (Auto)2018-03-15 12:03:00* Test Item Value Reference Range Interpretation Comments Monocytes (%) (Auto) (test code = 5905-5) 10.7 4.4-11.3 [facility] PasoEosinophils (%) (Auto)2018-03-15 12:03:00 * Test Item Value Reference Range Interpretation Comments Eosinophils (%) (Auto) (test code = 713-8) 0.5 0.0-6.0 [facility] PasoBasophils (%) (Auto)2018-03-15 12:03:00* Test Item Value Reference Range Interpretation Comments Basophils (%) (Auto) (test code = 706-2) 0.4 0.0-1.0 [facility] PasoIM GRANULOCYTES %2018-03-15 12:03:00* Test Item Value Reference Range Interpretation Comments IM GRANULOCYTES % (test code = IM GRANULOCYTES %) 0.4 0.0- 1.0 [facility] PasoNeutrophils # (Auto)2018-03-15 12:03:00* Test Item Value Reference Range Interpretation Comments Neutrophils # (Auto) (test code = 751-8) 6.1 2.1-6.9 [facility] PasoLymphocytes # (Auto)2018-03-15 12:03:00* Test Item Value Reference Range Interpretation Comments Lymphocytes # (Auto) (test code = 84560-9) 4.1 1.0-3.2 H [facility] PasoMonocytes # (Auto)2018-03-15 12:03:00* Test Item Value Reference Range Interpretation Comments Monocytes # (Auto) (test code = 742-7) 1.2 0.2-0.8 H [facility] PasoEosinophils # (Auto)2018-03-15 12:03:00* Test Item Value Reference Range Interpretation Comments Eosinophils # (Auto) (test code = 711-2) 0.1 0.0-0.4 [facility]Basophils # (Auto)2018-03-15 12:03:00* Test Item Value Reference Range Interpretation Comments Basophils # (Auto) (test code = 704-7) 0.1 0.0-0.1 [facility] PasoAbsolute Immature Granulocyte (auto 2018-03-15 12:03:00* Test Item Value Reference Range Interpretation Comments Absolute Immature Granulocyte (auto (martha t code = Absolute Immature Granulocyte (auto) 0.05 0-0.1 [facility] PasoUrine UXY7901-32-22 11:58:00* Test Item Value Reference Range Interpretation Comments Urine WBC (test code = 5821-4) 50- 0-5 H [facility] PasoUrine ERY4132-26-23 11:58:00* Test Item Value Reference Range Interpretation Comments Urine RBC (test code = 49563-9) NONE 0-5 [facility] PasoUrine Gyvsrbxu5858-70-43 11:58:00* Test Item Value Reference Range Interpretation Comments Urine Bacteria (test code = 62176-9) MODERATE NONE H [facility] PasoUrine Epithelial Venjl6033-54-57 11:58:00 * Test Item Value Reference Range Interpretation Comments Urine Epithelial Cells (test code = 75188-8) MODERATE NONE [facility] PasoUrine ABP6397-40-23 11:58:00* Test Item Value Reference Range Interpretation Comments Urine WBC (test code = 5821-4) >50 0-5 H [facility] PasoUrine UDP6278-51-80 11:58:00* Test Item Value Reference Range Interpretation Comments Urine RBC (test code = 22498-9) NONE 0-5 [facility] PasoUrine Wwhxjpgs7134-71-18 11:58:00* Test Item Value Reference Range Interpretation Comments Urine Bacteria (test code = 78690-2) MODERATE NONE H [facility] PasoUrine Epithelial Rvujn8308-18-83 11:58:00 * Test Item Value Reference Range Interpretation Comments Urine Epithelial Cells (test code = 12640-4) MODERATE NONE [facility] PasoUrine Kjoon4547-43-54 11:44:00* Test Item Value Reference Range Interpretation Comments Urine Color (test code = 5778-6) YELLOW YELLOW [facility]Urine Boziqin7597-13-30 11:44:00* Test Item Value Reference Range Interpretation Comments Urine Clarity (test code = 90774-2) SL CLOUDY CLEAR [facility] PasoUrine Specific Flqtfbd8178-96-06 11:44:00 * Test Item Value Reference Range Interpretation Comments Urine Specific [place] (test code = 5811-5) 1.005 1.010-1.02 5 L [facility] PasoUrine jZ3201-34-81 11:44:00* Test Item Value Reference Range Interpretation Comments Urine pH (test code = 25763-7) 7 5-7 [facility] PasoU[facility] Leukocyte Naetrpew2030-75-20 11:44:00* Test Item Value Reference Range Interpretation Comments Urine Leukocyte Esterase (test code = 5799-2) 2+ NEGATIVE H [facility] PasoUrine Inzrzet8174-56-09 11:44:00* Test Item Value Reference Range Interpretation Comments Urine Nitrite (test code = 54610-3) NEGATIVE NEGATIVE [facility] PasoUrine Sdcauxh0986-82-43 11:44:00* Test Item Value Reference Range Interpretation Comments Urine Protein (test code = 5804-0) NEGATIVE NEGATIVE [facility] PasoUrine Glucose (UA)2018-03-15 11:44:00* Test Item Value Reference Range Interpretation Comments Urine Glucose (UA) (test code = 2349-9) NEGATIVE NEGATIVE [facility] PasoUrine Nbbxunt3991-82-20 11:44:00* Test Item Value Reference Range Interpretation Comments Urine Ketones (test code = 14410-2) NEGATIVE NEGATIVE [facility] PasoUrine Qveovnajmyjy0539-76-37 11:44:00* Test Item Value Reference Range Interpretation Comments Urine Urobilinogen (test code = 91137-2) 0.2 0.2-1 [facility] Pnrxuhwgh9983-28-51 11:44:00* Test Item Value Reference Range Interpretation Comments Urine Bilirubin (test code = 1978-6) NEGATIVE NEGATIVE [facility] Prvsl3243-13-73 11:44:00* Test Item Value Reference Range Interpretation Comments Urine Blood (test code = 23992-5) NEGATIVE NEGATIVE [facility] Anwhc0754-26-68 11:44:00* Test Item Value Reference Range Interpretation Comments Urine Color (test code = 5778-6) YELLOW YELLOW [facility] Cjlhmts4912-65-65 11:44:00* Test Item Value Reference Range Interpretation Comments Urine Clarity (test code = 48734-2) SL CLOUDY CLEAR [facility] PasoUrine Specific Rmrmglm7370-71-44 11:44:00 * Test Item Value Reference Range Interpretation Comments Urine Specific [place] (test code = 5811-5) 1.005 1.010-1.02 5 L [facility]Urine bB7021-08-14 11:44:00* Test Item Value Reference Range Interpretation Comments Urine pH (test code = 51601-3) 7 5-7 [facility] PasoU[facility] Leukocyte Jjrnuoxu3108-07-76 11:44:00* Test Item Value Reference Range Interpretation Comments Urine Leukocyte Esterase (test code = 5799-2) 2+ NEGATIVE H [facility] PasoU[facility] Lhpggly5528-79-67 11:44:00* Test Item Value Reference Range Interpretation Comments Urine Nitrite (test code = 90175-1) NEGATIVE NEGATIVE [facility]Urine Dzrdwqe0918-12-15 11:44:00* Test Item Value Reference Range Interpretation Comments Urine Protein (test code = 5804-0) NEGATIVE NEGATIVE [facility] PasoUrine Glucose (UA)2018-03-15 11:44:00* Test Item Value Reference Range Interpretation Comments Urine Glucose (UA) (test code = 2349-9) NEGATIVE NEGATIVE [facility] PasoU[facility] Rbcrehp7155-48-59 11:44:00* Test Item Value Reference Range Interpretation Comments Urine Ketones (test code = 91324-3) NEGATIVE NEGATIVE [facility] PasoUrine Trugxovsvimi5331-63-66 11:44:00* Test Item Value Reference Range Interpretation Comments Urine Urobilinogen (test code = 12528-4) 0.2 0.2-1 [facility]Urine Vgwyhcajx1510-48-39 11:44:00* Test Item Value Reference Range Interpretation Comments Urine Bilirubin (test code = 1978-6) NEGATIVE NEGATIVE [facility] Pkzah9470-36-20 11:44:00* Test Item Value Reference Range Interpretation Comments Urine Blood (test code = 20382-8) NEGATIVE NEGATIVE [facility] PasoDifferential Total Cells Counted 2017-09-29 15:35:00* Test Item Value Reference Range Interpretation Comments Differential Total Cells Counted (test code = Differsheila tial Total Cells Counted) 100 [facility] PasoNeutrophils % (Manual)2017-09-29 15:35:00 * Test Item Value Reference Range Interpretation Comments Neutrophils % (Manual) (test code = 40877-3) 57 40-74 [facility] PasoLymphocytes % (Manual)2017-09-29 15:35:00 * Test Item Value Reference Range Interpretation Comments Lymphocytes % (Manual) (test code = 737-7) 40 19-48 [facility]Monocytes % (Manual)2017-09-29 15:35:00* Test Item Value Reference Range Interpretation Comments Monocytes % (Manual) (test code = 744-3) 2 3.4-9.0 L [facility]Basophils % (Manual)2017-09-29 15:35:00* Test Item Value Reference Range Interpretation Comments Basophils % (Manual) (test code = 10069-7) 1 0-1.5 [facility] PasoPlatelet Pvjxsyoo8834-93-65 15:35:00* Test Item Value Reference Range Interpretation Comments Platelet Estimate (test code = 98464-8) ADEQUATE [facility] PasoPlatelet Morphology Opwosns6520-45-78 15:35:00* Test Item Value Reference Range Interpretation Comments Platelet Morphology Comment (test code = 46056-5) NORMAL [facility] PasoRed Cell Morphology Ymbpqhe4917-75-21 15:35:00* Test Item Value Reference Range Interpretation Comments Red Cell Morphology Comment (test code = 6742-1) NORMAL [facility] PasoAnti-Thrombin III Frueyrnq6195-84-21 05:42:00* Test Item Value Reference Range Interpretation Comments Anti-Thrombin III Activity (test code = 3174-0) 87 75-135 Direct thrombin inhibitor anticoagulants such asrivaroxaban, apixaban and edoxab an will lead to spuriouslyelevated antithrombin activity levels possibly masking adeficiency.[facility]ocysteine2018-01-17 05:42:00* Test Item Value Reference Range Interpretation Comments Homocysteine (test code = 04043-8) 6.6 0.0-15.0 [facility] PasoProtein C Kczfxeuz0051-26-23 05:42:00* Test Item Value Reference Range Interpretation Comments Protein C Activity (test code = 6007-9) 135 73-180 [facility] PasoFree Protein O0701-57-53 05:42:00* Test Item Value Reference Range Interpretation Comments Free Protein S (test code = HQD0114) 59 57-157 This test was developed and its performance characteristicsdetermined by [facility] . It has not been cleared orapproved by the Food and Drug Administration.[facility] PasoActivated Protein C Mmmmkdccat-XGKU4972-83-17 05:42:00* Test Item Value Reference Range Interpretation Comments Activated Protein C Resistance-APTT (test code = 28101-3) 2.6 2.2-3.5 The APCR result may be falsely increased (masking anabnormal, low APCR result) i n patients on direct Xainhibitor (e.g., rivaroxaban, apixaban, edoxaban) or adir ect thrombin inhibitor (e.g., dabigatran) anticoagulanttherapy due to assay inte rference by these drugs. Please note reference interval change [facility] PasoPlasminogen Nznrugmr3378-63-59 05:42:00* Test Item Value Reference Range Interpretation Comments Plasminogen Activity (test code = 5970-9) 112 70-150 [facility] PasoFactor II DNA Sqaxeyai1866-69-40 05:42:00 * Test Item Value Reference Range Interpretation Comments Factor II DNA Analysis (test code = OLA3699) Comment . NEGATIVENo mutation identified.Comment:A point mutation ([id number]) in the factor II (prothrombin)gene is the second most common cause of inheritedthrombophilia. The incidence of this mutation in the [place] population is about 2% and i n the AfricanAmerican population it is approximately 0.5%. This mutationis rare in the and population. Beingheterozygous for a prothrombin mutation increases the riskfor developing venous thrombosis about 2 to 3 times abovethe general population risk. Being homozygous for theprothrombin gene mutat ion increases the relative risk forvenous thrombosis further, although it is not yet known howmuch further the risk is increased. In women heterozygousfor the p rothrombin gene mutation, the use of estrogencontaining oral contraceptives incr eases the relative riskof venous thrombosis about 16 times and the risk ofdevelo ping cerebral thrombosis is also significantlyincreased. In the prothr ombin gene mutationincreases risk for venous thrombosis and may increaserisk for stillbirth, placental abruption, pre-eclampsia andfetal growth restriction. If the patient possesses two ormore congenital or acquired thrombophilic risk facto rs, therisk for thrombosis may rise to more than the sum of therisk ratios for t he individual mutations. This assaydetects only the prothrombin Z11448M mutation and doesnot measure genetic abnormalities elsewhere in thegenome. Other thrombo tic risk factors may be pursuedthrough systematic clinical laboratory analysis. Thesefactors include the R506Q ([place]) mutation in the Factor Vgene, plasma bryan ocysteine levels, as well as testing fordeficiencies of antithrombin III, protei n C and protein S.Genetic Counselors are available for health care providersto d [facility] campususs results at [phone] ([phone]).Methodology:DNA analysis of the Factor I I gene was performed by PCRamplification followed by restriction analysis. Thedi agnostic sensitivity is >99% for both. All the tests mustbe combined with clinical information for the most accurateinterpretation. Molecular-based testing is highly accurate,but as in any laboratory test, diagnostic errors may occur.This test was developed and its performance characteristicsdetermined by [facility]. It has not been cleared or approvedby the Food and Drug Administration.Poort SR, et al. Blood. 1996; 88:3762-0882.Arturo KONG. Circulation. 2004; 110:e15-e18.Josafat I, et al. Arterioscler Thromb Vasc Biol. 1999;19:700-703.Emani Gallegos, PhD, Rico Mcelroy, PhD, Albino Sevilla, PhD, Tayo Neri MBaySBay, PhD, Cyndi Rodrigez, PhD, Imani Morales, PhD, Antonio Cordova, PhD, FACMGPerformed at: [address] [id number] Director: Estuardo Angel MD, Phone: [phone] at: [address] [id number] Director: Trevon Monreal MD, Phone: [phone] at: [facility] [id number] [place], [place] [address]Lab Director: Clara Luong MD, Phone: [phone] General Hospital Qjnodzw5440-50-48 08:47:00* Test Item Value Reference Range Interpretation Comments Bedside Glucose (test code = 05492-1) 126 70-120 H Meter ID: [id number] [facility] Campustool Occult Blood 2017-09-21 22:31:00* Test Item Value Reference Range Interpretation Comments Stool Occult Blood (test code = 2335-8) NEGATIVE NEGATIVE [facility] PasoThyroid Stimulating Hormone (TSH) 2017-09-21 13:08:00* Test Item Value Reference Range Interpretation Comments Thyroid Stimulating Hormone (TSH) (test code = 04945-1) 1.488 0.350-4.940 [facility] PasoTriglycerides Khyzp3117-16-15 12:27:00* Test Item Value Reference Range Interpretation Comments Triglycerides Level (test code = 2571-8) 97 0-149 [facility] PasoCholesterol Gnbja3010-43-97 12:27:00* Test Item Value Reference Range Interpretation Comments Cholesterol Level (test code = 2093-3) 211 0-199 H Less than 200 mg/dL Low Psxb837 - 239 mg/dL Borderline Qrxc139 m g/dl and greater High Risk [facility] PasoLDL Cuffdkplpvh4183-98-87 12:27:00* Test Item Value Reference Range Interpretation Comments LDL Cholesterol (test code = 2089-1) 122 60-130 [facility] PasoHDL Bhdsglzhmjz4529-40-04 12:27:00* Test Item Value Reference Range Interpretation Comments HDL Cholesterol (test code = 2085-9) 70 40-60 H [facility] PasoCholesterol/HDL Sewpi0969-10-72 12:27:00 * Test Item Value Reference Range Interpretation Comments Cholesterol/HDL Ratio (test code = 9830-1) 3.0 3.0-3.6 [facility] PasoInfluenza Virus Types A,B Antigen 2017-09-21 02:13:00* Test Item Value Reference Range Interpretation Comments Influenza Virus Types A,B Antigen (test code = 08111-4) NEGATIVE NEGATIVE [facility] PasoLipase2018-01-09 15:15:00* Test Item Value Reference Range Interpretation Comments Lipase (test code = 3040-3) 25 8-78 [facility] PasoCT [facility]ST [facility] [address] [place] [address] Patient Name: MADDIE COOMBS MR #: [id number] : 1945 Age/Sex: 72/F Req #: [id number] [facility] Physician: CHRIS PEREZ MD Ordered by: JOSE RAUL GUZMAN MD Report #: [id number] Location: [facility] Room/Bed: [place] [address] Procedure: [id number] C T/CT CHEST W Exam Date: 09/21/17 Exam Time: 1315 REPORT STATUS: Signed PROCEDURE: CT scan of the chest WITH intravenous contrast, using PE protocol. TECHNIQUE: The chest was scanned utilizing a multidetector helical scanner from the lung apex through the level of the a drenal glands after the IV administration of 62 cc of Isovue 370 with special concentration in the pulmonary arteries. Coronal and sagittal multiplanar r eformations were obtained. COMPARISON: None. INDICATIONS: Chest p ain, high blood pressure FINDINGS: Lines/tubes: None. Lungs an d Airways: Filling defects in segmental and subsegmental branches of the post erior basal segments of bilateral lower lobes, consistent with pulmonary embo li (series 2, images 68, 77 and 83 on the right and 71, 73, 75 on the left). No other filling defects are identified in the pulmonary arteries. Linear op acities in the lateral right lower lobe, likely reflect subsegmental atelecta sis or scarring. Mild biapical pleuroparenchymal scarring. 5 mm calcified gr anuloma in the right lower lobe (series 3, image 57). No masses or consolidati on. Airways are clear, without endobronchial lesions. Pleura: No effusio n, or pneumothorax. Heart and mediastinum: Thyroid is unremarkable. Heart size is normal. No pericardial effusion. Aorta is non-aneurysmal. Main pulmon mallika artery is normal in caliber. Lymph nodes: No mediastinal, hilar, or axillary adenopathy. Abdomen: Limited contrast-enhanced views of the upper ab domen show no abnormality within the visualized liver, spleen, pancreas, or a left kidney. 1.3 cm fluid density simple cyst in the right kidney. The ad renal glands are normal. Bones: No acute bony abnormalities. Soft tissues are unremarkable. IMPRESSION: 1. pulmonary emboli involving segment al and subsegmental branches of the posterior basal segments of bilateral low er lobes. No other pulmonary emboli are noted. 2. Findings discussed with Gerson mcneil, the patient's nurse at 1445 hr. Susan Josue Dictated by: Kishan Walker M.D. on 09/21/2017 at 15:05 Electr onically approved by: Kishan Walker M.D. on 09/21/2017 at 15:05 Dictated By: KISHAN WALKER MD 1505 Transcribed By: JAZ on 09/21/17 1505 COPY TO: JOSE RAUL RAMIREZ MD CHEST SINGLE (NOT PORTABLE) [place] [address] Patient Name: MADDIE COOMBS MR #: [id number] : 1945 Age/Sex: 72/F Req #: [id number] Adm Physician: Ordered by: HERNAN YAN SHOE PATTERNMAKER Report #: [id number] Location: ER Room/Bed: Procedure: [id number] DX/CHEST SINGLE (NOT PORTABLE) Exam Date: 09/20/17 Exam Time: [address] ATUS: Signed PROCEDURE: X-RAY CHEST, ONE VIEW COMPARISON: 0. INDICATIONS: CHEST PAIN FINDINGS: The lungs remain well-in flated. No focal consolidation, pleural effusion, or pneumothorax. Stable swapnil cified granuloma in the right midlung. The mediastinal contour and pulmonary vasculature are within normal limits. No acute osseous abnormality. CONCLUSION: No acute cardiopulmonary abnormality. Dictated by: Jacqueline Hines M.D. on 09/20/2017 at 14:16 Electronically approved by: Jacqueline Hines M.D. on 09/20/2017 at 14:16 Dictated By: JACQUELINE HINES MD Elec tronically Signed By: JACQUELINE HINES MD on 09/20/17 1416 Transcribed By: JAZ london 09/20/17 1416 COPY TO: HERNAN YAN NP
[2020-05-24] MEDS ORDERED: ALBUTEROL2.5 MG/3 M INH (10:41)
[2020-05-24] MEDS ORDERED: PROAIR HFA INH8.5 GM PO (10:41)
[2020-05-24] MEDS ORDERED: AZITHROMYCIN250 MG PO (10:41)
[2020-05-24 10:42] VITALS: BP 127/68
== END 2020-05-24 10:42 | disposition home or self-care (01) ==
LOC: FSED 09:15
DX: J20.9 Acute bronchitis, unspecified (principal); J45.909 Unspecified asthma, uncomplicated; I50.9 Heart failure, unspecified; E78.5 Hyperlipidemia, unspecified; K21.9 Gastro-esophageal reflux disease without esophagitis; F41.9 Anxiety disorder, unspecified; Z86.711 Personal history of pulmonary embolism
CPT/HCPCS: 36415; 71046; 80053; 82553; 84484; 85025; 93005; 99283

== ENCOUNTER 2021-01-23 07:56 | Emergency (ER) | payer MEDICARE ==
[~2021-01-23] VITALS: Ht 167.6 cm; Wt 73.6 kg
[~2021-01-23 07:56] MED LIST changes: +ALBUTEROL2.5 MG/3 M INH; +AZITHROMYCIN250 MG PO; +PROAIR HFA INH8.5 GM PO
== END 2021-01-23 09:15 | disposition home or self-care (01) ==
LOC: FSED 08:02
DX: M20.091 Other deformity of right finger(s) (principal); M19.041 Primary osteoarthritis, right hand; I50.9 Heart failure, unspecified; E78.5 Hyperlipidemia, unspecified; K21.9 Gastro-esophageal reflux disease without esophagitis; F41.9 Anxiety disorder, unspecified; Z86.711 Personal history of pulmonary embolism
CPT/HCPCS: 99283

== ENCOUNTER 2021-01-29 09:25 | Inpatient (IN) | payer MEDICARE ==
[~2021-01-29] VITALS: Ht 167.6 cm; Wt 72.6 kg
[2021-01-29] MEDS ORDERED: ASPIRIN 325 MG TAB PO ONE (10:00)
[2021-01-29] MEDS ORDERED: MAGNESIUM/ALUMINUM/SIMETHICONE 30 ML UDC PO ONE ×2 (11:30→11:45)
[2021-01-29] MEDS: BELLADONNA ALK/PHENOBARBITAL 5 ML UDC PO SCH ×2 (11:43→21:00)
[2021-01-29] MEDS ORDERED: ASPIRIN 81 MG CHEW TAB PO ONE (11:45)
[2021-01-29] MEDS ORDERED: ONDANSETRON HCL INJ 2MG/ML 2ML 2 MG/ML VIAL IV PRN (11:45)
[2021-01-29] MEDS ORDERED: SODIUM CHLORIDE FLUSH 10 ML SYR INJ PRN (11:45)
[2021-01-29] MEDS ORDERED: NITROGLYCERIN 0.4 MG SUBL SL PRN (11:45)
[2021-01-29] MEDS ORDERED: MAGNESIUM/ALUMINUM/SIMETHICONE 30 ML UDC ONE (11:46)
[2021-01-29] MEDS ORDERED: BELLADONNA ALK/PHENOBARBITAL 5 ML UDC ONE (11:46)
[2021-01-29 13:40] VITALS: BP 117/76
[2021-01-29 15:19] LABS: CREATINE KINASE MB 0.5 ng/mL (0-5.0)
[2021-01-29 16:24] VITALS: BP 114/65
[2021-01-29] MEDS ORDERED: SODIUM CHLORIDE 0.9% 50ML 50 ML ONE (17:17)
[2021-01-29] MEDS ORDERED: IOPAMIDOL 370 MG/ML 200 ML INFUS..BTL INJ ONE (17:18)
[2021-01-29 20:00] VITALS: BP 116/58
[2021-01-29 21:00] VITALS: BP 116/58
[2021-01-29 22:41] LABS: CREATINE KINASE MB 0.4 ng/mL (0-5.0)
[2021-01-30] VITALS: BP 105/72
[2021-01-30 04:00] VITALS: BP 115/56
[2021-01-30 05:22] LABS: CHOL/HDL RATIO 2.9 (3.0-3.6)
[2021-01-30 05:48] LABS: CREATINE KINASE 34 IU/L (29-168)
[2021-01-30] MEDS ORDERED: SUCRALFATE 1 GM TAB PO SCH (07:30)
[2021-01-30 07:53] VITALS: BP 118/55
[2021-01-30 08:18] VITALS: BP 118/55
[2021-01-30] MEDS: BELLADONNA ALK/PHENOBARBITAL 5 ML UDC PO SCH (08:40)
[2021-01-30] MEDS ORDERED: FAMOTIDINE 20 MG/2 ML VIAL IV SCH (09:00)
[2021-01-30] MEDS ORDERED: ONDANSETRON HCL 4 MG ORAL DISINTEGRATING TAB PO PRN (10:00)
[2021-01-31] MEDS ORDERED: FAMOTIDINE 20 MG TAB PO SCH (07:30)
== END 2021-01-30 09:50 | disposition home or self-care (01) | DRG 311 ==
LOC: FSED 09:51 → ERHOLD 11:52 → MED/SURG3 13:06
PROVIDERS: ADMIT Family Medicine; ATTEND Family Medicine
DX: I20.9 Angina pectoris, unspecified (principal); N39.0 Urinary tract infection, site not specified; I10 Essential (primary) hypertension; E78.5 Hyperlipidemia, unspecified; Z86.711 Personal history of pulmonary embolism; Z79.01 Long term (current) use of anticoagulants; Z20.822 Contact with and (suspected) exposure to COVID-19; F41.9 Anxiety disorder, unspecified; K21.9 Gastro-esophageal reflux disease without esophagitis
CPT/HCPCS: 36415; 71046; 71260; 80061; 82550; 82553; 84484; 85379; 93005; 99284; Q9967; U0002

== ENCOUNTER → 2021-09-23 | Outpatient (CLI) | payer MEDICARE | LOC: RAD 08:26 | PROVIDERS: ATTEND Family Medicine | DX: I89.0 Lymphedema, not elsewhere classified (principal) | CPT/HCPCS: 93970 ==

== ENCOUNTER 2022-06-27 09:19 | Observation (INO) | payer MEDICARE ==
[~2022-06-27] VITALS: Ht 167.6 cm; Wt 75.3 kg
[2022-06-27] MEDS ORDERED: ASPIRIN EC81 MG PO (10:07)
[2022-06-27] MEDS ORDERED: SODIUM CHLORIDE FLUSH 10 ML SYR INJ PRN (11:00)
[2022-06-27] MEDS ORDERED: ACETAMINOPHEN 325 MG TAB PO PRN (11:00)
[2022-06-27] MEDS ORDERED: ASPIRIN 81 MG CHEW TAB PO ONE (11:00)
[2022-06-27] MEDS ORDERED: ONDANSETRON HCL INJ 2MG/ML 2ML 2 MG/ML VIAL IV PRN (11:00)
[2022-06-27 13:28] VITALS: BP 135/62
[2022-06-27 14:54] VITALS: BP 135/62
[2022-06-27 15:07] LABS: CREATINE KINASE 39 IU/L (29-168)
[2022-06-27] MEDS ORDERED: SODIUM CHLORIDE 0.9% 1000ML 1,000 ML IV STA (15:51)
[2022-06-27] MEDS ORDERED: LEVOFLOXACIN 750MG/D5W 150ML 150 ML IV ONE ×2 (16:00→16:30)
[2022-06-27] MEDS ORDERED: LEVOFLOXACIN 500MG/D5W 100ML 100 ML IV ONE (17:30)
[2022-06-27] MEDS ORDERED: SODIUM CHLORIDE 0.9% 1000ML 1,000 ML IV SCH (17:30)
[2022-06-27 20:00] VITALS: BP 113/66
[2022-06-27 20:38] VITALS: BP 113/66
[2022-06-27] MEDS ORDERED: ZOLPIDEM TARTRATE 5 MG TAB PO PRN (21:00)
[2022-06-27] MEDS ORDERED: ATORVASTATIN CA10 MG PO (22:42)
[2022-06-27] MEDS ORDERED: DIAZEPAM5 MG PO (22:42)
[2022-06-28] VITALS: BP 122/63
[2022-06-28 05:16] VITALS: BP 129/69
[2022-06-28 06:47] LABS: BASOPHILS # (AUTO) 0.1 (0.0-0.1); BASOPHILS % 0.5 % (0.0-1.0); EOSINOPHILS # (AUTO) 0.1 (0.0-0.4); EOSINOPHILS % 1.1 % (0.0-6.0); HEMATOCRIT 38.2 % (34.2-44.1); HEMOGLOBIN 11.2 g/dL (12.0-16.0); LYMPHOCYTES # (AUTO) 2.8 (1.0-3.2); LYMPHOCYTES % 27.1 % (18.0-39.1); MEAN CORPUSCULAR HEMOGLOBIN 26.9 pg (28-32); MEAN CORPUSCULAR HGB CONC 29.3 g/dL (31-35); MEAN CORPUSCULAR VOLUME 91.6 fL (81-99); MONOCYTES # (AUTO) 1.1 (0.2-0.8); MONOCYTES % 10.8 % (4.4-11.3); NEUTROPHILS # (AUTO) 6.3 (2.1-6.9); PLATELET COUNT 228 x10e3/uL (140-360); RED BLOOD COUNT 4.17 x10e6/uL (3.6-5.1); RED CELL DISTRIBUTION WIDTH 13.4 % (11.7-14.4)
[2022-06-28 07:51] VITALS: BP 129/79
[2022-06-28 07:56] VITALS: BP 129/79
[2022-06-28] MEDS ORDERED: ENOXAPARIN SOD INJ 40 MG/0.4 ML SYR SC SCH (09:00)
[2022-06-28] MEDS ORDERED: IPRATROPIUM BROMIDE 0.02% 2.5 ML NEB NEB PRN (09:30)
[2022-06-28] MEDS ORDERED: DIAZEPAM 5 MG TAB PO SCH (10:15)
[2022-06-28] MEDS ORDERED: ASPIRIN 81 MG ENTERIC COATED PO SCH (10:15)
[2022-06-28 12:40] VITALS: BP 110/64
[2022-06-28 16:01] VITALS: BP 132/62
[2022-06-28] MEDS ORDERED: LEVOFLOXACIN250 MG PO (18:55)
[2022-06-28] MEDS ORDERED: ATORVASTATIN 10 MG TAB PO SCH (21:00)
== END 2022-06-28 19:48 | disposition home or self-care (01) ==
LOC: FSED 09:28 → ERHOLD 11:03 → MED/SURG 13:28
PROVIDERS: ADMIT Family Medicine; ATTEND Family Medicine
DX: J18.9 Pneumonia, unspecified organism (principal); E66.9 Obesity, unspecified; R91.8 Other nonspecific abnormal finding of lung field; K21.9 Gastro-esophageal reflux disease without esophagitis; R00.2 Palpitations; I10 Essential (primary) hypertension; E78.5 Hyperlipidemia, unspecified; Z86.711 Personal history of pulmonary embolism; Z87.891 Personal history of nicotine dependence; Z88.5 Allergy status to narcotic agent; Z88.0 Allergy status to penicillin; Z88.2 Allergy status to sulfonamides; Z88.8 Allergy status to other drugs, medicaments and biological substances; F41.9 Anxiety disorder, unspecified; Z20.822 Contact with and (suspected) exposure to COVID-19; Z68.26 Body mass index [BMI] 26.0-26.9, adult
CPT/HCPCS: 36415 ×2; 71046; 71250; 80053; 81003; 82550; 82553; 83605 ×2; 84484; 85025 ×2; 85379; 87040; 87400; 93005; 94640; 94799; 99251; 99284; G0378 ×2; J1956; J7030 ×2; U0002; J1650

== ENCOUNTER 2025-04-30 17:53 | Emergency (ER) | payer MEDICARE ==
[~2025-04-30] VITALS: Ht 167.6 cm; Wt 72.2 kg
[~2025-04-30 17:53] MED LIST changes: +ASPIRIN EC81 MG PO; +ATORVASTATIN CA10 MG PO; +COMPACT COMPRE1 EACH; +CORICIDIN HBP1 EAC1 PO; +DIAZEPAM5 MG PO; +DIPHENHYDRAMINE25 MG PO; +IPRAT-ALBUT 0.5-3 ML NEB; +LEVOFLOXACIN250 MG PO
[2025-04-30] MEDS ORDERED: VALIUM2 MG PO (18:29)
[2025-04-30 19:13] VITALS: PULSE 74; RESP 18; TEMP 98.6; O2SAT 96
== END 2025-04-30 19:14 | disposition home or self-care (01) ==
LOC: FSED 18:05
DX: S60.454A Superficial foreign body of right ring finger, initial encounter (principal); I10 Essential (primary) hypertension; E78.5 Hyperlipidemia, unspecified; M19.09 Primary osteoarthritis, other specified site; K21.9 Gastro-esophageal reflux disease without esophagitis; Z86.718 Personal history of other venous thrombosis and embolism
CPT/HCPCS: 99283